=== PATIENT | male | born 1955 | race Caucasian/White ===

== ENCOUNTER 2023-02-08 20:38 | Inpatient (IN) | payer MEDICARE, MEDICAID ==
[~2023-02-08] VITALS: Ht 190.5 cm; Wt 86.8 kg
--- NOTE | 2023-02-08 20:50 | Progress Note ---
Progress Note 67yoM patient visiting from [place], [place] who I accepted via [facility] at 2039 from [facility] for GIB with hemoccult + stools with mid-epigastric abdominal pain with h/o CAD previous CABG. VSS so placed admit orders and updated Dr Heard and Dr Chun. Transfuse 1 unit of blood is planned after labs drawn stat when he arrives. PPI ordered along with EKG and Tely. ANEESH CORDOVA DO Feb 08, 2023 20:50
[2023-02-08] MEDS ORDERED: ANTACID SUSPENSION 30 ML UDC PO PRN (22:45)
[2023-02-08] MEDS ORDERED: MELATONIN 3 MG TABLET PO PRN (22:45)
[2023-02-08] MEDS ORDERED: diphenhydrAMINE 25 MG TABLET PO PRN (22:45)
[2023-02-08] MEDS ORDERED: BISACODYL 10 MG SUPPOSITORY PR PRN (22:45)
[2023-02-08] MEDS ORDERED: NS IV 500 ML 500 ML IV PRN (22:45)
[2023-02-08] MEDS ORDERED: ONDANSETRON 4 MG ORAL DISSOLVE TABLET PO PRN (22:45)
[2023-02-08] MEDS ORDERED: NS IV 500 ML 500 ML IV SCH ×2 (22:45→23:00)
[2023-02-08] MEDS ORDERED: LACTULOSE SYRUP 10GM/15ML 30ML UDC PO PRN (22:45)
[2023-02-08] MEDS ORDERED: diphenhydrAMINE INJ 50 MG/ML VIAL IVP PRN (22:45)
[2023-02-08] MEDS ORDERED: ACETAMINOPHEN 325 MG TABLET PO PRN (22:45)
[2023-02-08] MEDS ORDERED: CALCIUM CARBONATE 500 MG CHEW TABLET PO PRN (22:45)
[2023-02-08] MEDS ORDERED: MILK OF MAGNESIA 400 MG/5 ML 30 ML UDC PO PRN (22:45)
[2023-02-08] MEDS ORDERED: LORazepam 0.5 MG TABLET PO PRN (23:00)
[2023-02-08 23:12] LABS: BASOPHILS # (AUTO) 0.1 10^3/uL (0.0-0.1); BASOPHILS % (AUTO) 1 % (0-10); EOSINOPHILS # (AUTO) 0.1 10^3/uL (0.0-0.3); EOSINOPHILS % (AUTO) 1 % (0-10); HEMATOCRIT 28 % (40-54); HEMOGLOBIN 9.2 g/dL (13.3-17.7); LYMPHOCYTES # (AUTO) 1.5 10^3/uL (1.0-4.0); LYMPHOCYTES % (AUTO) 15 % (12-44); MEAN CORPUSCULAR HEMOGLOBIN 30 pg (25-34); MEAN CORPUSCULAR HGB CONC 33 g/dL (32-36); MEAN CORPUSCULAR VOLUME 93 fL (80-99); MEAN PLATELET VOLUME 11.1 fL (9.0-12.2); MONOCYTES # (AUTO) 1.1 10^3/uL (0.0-1.0); MONOCYTES % (AUTO) 11 % (0-12); NEUTROPHILS # (AUTO) 7.2 10^3/uL (1.8-7.8); NEUTROPHILS % (AUTO) 73 % (42-75); PLATELET COUNT 252 10^3/uL (130-400)
[2023-02-08] MEDS ORDERED: HYDROmorphone INJECTION 2 MG/ML VIAL ONE (23:19)
[2023-02-08 23:22] LABS: ALBUMIN 3.7 GM/DL (3.2-4.5)
[2023-02-08 23:23] LABS: POTASSIUM 3.8 MMOL/L (3.6-5.0)
[2023-02-08] MEDS: HYDROmorphone INJECTION 2 MG/ML VIAL IV PRN (23:23)
[2023-02-08] MEDS: NS IV 1000 ML 1,000 ML IV SCH (23:23)
[2023-02-08 23:24] LABS: CALCIUM 8.8 MG/DL (8.5-10.1)
[2023-02-08 23:27] LABS: BILIRUBIN,TOTAL 0.6 MG/DL (0.1-1.0)
[2023-02-08 23:29] LABS: CREATININE SERUM 1.39 MG/DL (0.60-1.30)
[2023-02-09] MEDS ORDERED: RT-ALBUTEROL SULF 2.5 MG/3 ML PRE-MIX VIAL INH PRN (00:15)
[2023-02-09] MEDS ORDERED: APIX5TAB PO (00:32)
[2023-02-09] MEDS ORDERED: TRM50T PO (00:32)
[2023-02-09] MEDS ORDERED: FERR325T18 PO (00:32)
[2023-02-09] MEDS ORDERED: MTP25TSR PO (00:32)
[2023-02-09] MEDS ORDERED: NORT50CA PO (00:32)
[2023-02-09] MEDS ORDERED: ASPI-808 PO (00:32)
[2023-02-09] MEDS ORDERED: DULO30CA49 PO (00:32)
[2023-02-09] MEDS ORDERED: METF-399 PO (00:32)
[2023-02-09] MEDS ORDERED: LISI5TAB20 PO (00:32)
[2023-02-09] MEDS ORDERED: MAGN200T8 PO (00:32)
[2023-02-09] MEDS: HYDROmorphone INJECTION 2 MG/ML VIAL IV PRN ×5 (02:36→18:05)
[2023-02-09] MEDS: NITROGLYCERIN 0.4 MG SL TABLETS BTL 25'S SL PRN ×2 (03:48→03:55)
[2023-02-09] MEDS ORDERED: NITROGLYCERIN 0.4 MG/HR PATCH TD ONE ×2 (04:00→04:02)
[2023-02-09 04:38] LABS: BASOPHILS # (AUTO) 0.1 10^3/uL (0.0-0.1); BASOPHILS % (AUTO) 1 % (0-10); EOSINOPHILS # (AUTO) 0.1 10^3/uL (0.0-0.3); EOSINOPHILS % (AUTO) 1 % (0-10); HEMATOCRIT 25 % (40-54); HEMOGLOBIN 8.3 g/dL (13.3-17.7); LYMPHOCYTES # (AUTO) 1.5 10^3/uL (1.0-4.0); LYMPHOCYTES % (AUTO) 15 % (12-44); MEAN CORPUSCULAR HEMOGLOBIN 30 pg (25-34); MEAN CORPUSCULAR HGB CONC 33 g/dL (32-36); MEAN CORPUSCULAR VOLUME 92 fL (80-99); MONOCYTES # (AUTO) 1.1 10^3/uL (0.0-1.0); MONOCYTES % (AUTO) 10 % (0-12); NEUTROPHILS # (AUTO) 7.7 10^3/uL (1.8-7.8); NEUTROPHILS % (AUTO) 73 % (42-75); PLATELET COUNT 231 10^3/uL (130-400); WHITE BLOOD COUNT 10.5 10^3/uL (4.3-11.0)
[2023-02-09 05:02] LABS: ALBUMIN 3.4 GM/DL (3.2-4.5); POTASSIUM 3.9 MMOL/L (3.6-5.0)
[2023-02-09 05:03] LABS: CALCIUM 8.3 MG/DL (8.5-10.1)
[2023-02-09 05:04] LABS: TOTAL PROTEIN 6.5 GM/DL (6.4-8.2)
[2023-02-09] MEDS: POTASSIUM CHLORIDE 20 MEQ TABLET PO SCH (05:05)
[2023-02-09] MEDS: POTASSIUM CL 10MEQ/50ML IVPB 50 ML IV SCH ×3 (05:05→05:43)
[2023-02-09 05:06] LABS: BILIRUBIN,TOTAL 0.6 MG/DL (0.1-1.0)
[2023-02-09 05:08] LABS: CREATININE SERUM 1.2 MG/DL (0.60-1.30); PHOSPHORUS 2.1 MG/DL (2.3-4.7)
[2023-02-09] MEDS: inSUlin ASPART 1 UNIT/0.01 ML (PER UNIT) SC SCH ×3 (05:09→18:16)
[2023-02-09 05:11] LABS: MAGNESIUM 1.7 MG/DL (1.6-2.4)
[2023-02-09] MEDS: MAGNESIUM 1 GM/100 ML IVPB 100 ML IV SCH ×5 (05:21→07:58)
--- NOTE | 2023-02-09 07:27 | History & Physical ---
YENNY CLAROS 02/09/23 0727: History of Present Illness History of Present Illness Reason for visit/HPI 02/09/2023: CC: GI Bleed HPI: Yuri is a 67-year-old male that presented to the [place] ED due to mid- epigastic pain. It was also found that there was a GI bleed with a positive hemeoccult test. Yuri says that he has never had pain like this. He notes that on Wednesday the pain started in his left shoulder and has migrated to his gastric region. He says that day he was participating in strenuous activity putting siding on his house. He says that the pain is worse with movement such as moving his arms or walking. Yuri also endorses that when he walks, he feels weakness in his legs and arms and gets light-headed. The pain is rated at a 8/10. The pain feels like pressure and radiates up to the sternum. Yuri notes that he had a colonoscopy and EGD [address] Jonas at [facility] which was "negative" per patient. Yuri notes that he has no other associated symptoms. Date of Admission Feb 08, 2023 at 22:40 Date Seen by a Provider: Feb 09, 2023 Time Seen by a Provider: 07:53 I consulted on this patient on 02/09/23 07:26 Attending Physician Admitting Physician Admitting Physician: Rylee Cordova DO Attending Physician: Rylee Cordova DO Consult Allergies and Home Medications Allergies Coded Allergies: No Known Drug Allergies (Unverified , 02/08/23) Patient Home Medication List Home Medication List Reviewed: Yes Apixaban (Eliquis) 5 Mg Tablet, 5 MG PO BID, (Reported) Entered as Reported by: JHONY ALEMAN on 02/09/2331 Last Action: Reviewed Aspirin (Aspirin) 325 Mg Tablet, 325 MG PO DAILY, (Reported) Entered as Reported by: JHONY ALEMAN on 02/09/2331 Last Action: Reviewed Atorvastatin Calcium (Atorvastatin Calcium) 80 Mg Tablet, 80 MG PO HS, (Reported) Entered as Reported by: ALPESH COLVIN on 02/09/23 1208 Last Action: Reviewed Duloxetine HCl (Duloxetine HCl) 30 Mg Capsule.dr, 30 MG PO DAILY, (Reported) Entered as Reported by: JHONY ALEMAN on 02/09/2331 Last Action: Reviewed Ferrous Sulfate (Ferrous Sulfate) 325 Mg (65 Mg Iron) Tablet, 325 MG PO DAILY, (Reported) Entered as Reported by: JHONY ALEMAN on 02/09/2331 Last Action: Reviewed Lisinopril (Lisinopril) 5 Mg Tablet, 5 MG PO DAILY, (Reported) Entered as Reported by: JHONY ALEMAN on 02/09/2331 Last Action: Reviewed Magnesium Oxide (Mag-Oxide) 200 Mg Magnesium Tablet, 400 MG PO DAILY, (Reported) Entered as Reported by: JHONY ALEMAN on 02/09/2331 Last Action: Reviewed Metformin HCl (Metformin HCl) 1,000 Mg Tablet, 1,000 MG PO BID, (Reported) Entered as Reported by: JHONY ALEMAN on 02/09/2331 Last Action: Reviewed Metoprolol Succinate (Metoprolol Succinate) 25 Mg Tab.er.24h, 25 MG PO DAILY, (Reported) Entered as Reported by: JHONY ALEMAN on 02/09/2331 Last Action: Reviewed Nortriptyline HCl (Nortriptyline HCl) 50 Mg Capsule, 50 MG PO BID, (Reported) Entered as Reported by: JHONY ALEMAN on 02/09/2331 Last Action: Reviewed Tramadol HCl (Tramadol HCl) 50 Mg Tablet, 50 MG PO Q6H PRN for PAIN-MODERATE (5- 7), (Reported) Entered as Reported by: JHONY ALEMAN on 02/09/2331 Last Action: Reviewed Vitamin B Complex (B Complex) 1 Each Tablet, 1 EACH PO DAILY, (Reported) Entered as Reported by: ALPESH COLVIN on 02/09/231207 Last Action: Reviewed Past Qygiddh-Nvjuyt-Cdudxu Hx Patient Social History Marrital Status: Employed/Student: retired Tobacco Use?: No Smoking Status: Former Smoker (30 pack years) Smokeless Tobacco Frequency: Never a User Use of E-Cig and/or Vaping dev: No Substance use?: No Substance type: Marijuana (medicinal, CBD oil ) Alcohol Use?: No Pt feels they are or have been: No Current Status Advance Directives: No Communicates: Verbally Primary Language: Israeli Preferred Spoken Language: Israeli Is interpretation needed?: No Sensory deficits: Vision impairment Implanted or Applied Medical D: Orthopedic hardware, Pacemaker, Stents Past Medical History Surgeries: Adenoidectomy, CABG, Coronary Stent, Open Heart Surgery, Orthopedic (spine, lower, plate in neck), Pacemaker Sleep Apnea, COPD Atrial Fibrillation, Coronary Artery Disease, Heart Attack, High Cholesterol, Hypertension Abdominal Hernia, Hemorrhoids, Ulcer Osteoporosis, Chronic Back Pain Diabetes, Non-Insulin dep Sleep Difficulties, Anxiety, Depression Family Medical History Diabetes Review of Systems Constitutional: No dizziness, No fever, No weight gain, No weight loss EENTM: no symptoms reported Respiratory: no symptoms reported Cardiovascular: chest pain, Hx of Intervention, other (lightheaded ) Gastrointestinal: RUQ, see HPI, abdominal pain (RUQ) Genitourinary: no symptoms reported Musculoskeletal: back pain Skin: no symptoms reported Psychiatric/Neurological: No Symptoms Reported Physical Exam Vital Signs Vital Signs - First Documented Capillary Refill : Less Than 3 Seconds Height, Weight, BMI Height: '" Weight: lbs. oz. kg; 23.11 BMI Method: General Appearance: No Apparent Distress, WD/WN, Anxious Eyes: Bilateral Eye Normal Inspection HEENT: PERRL/EOMI, Moist Mucous Membranes; No Pale Conjunctivae (L), No Pale Conjunctivae (R) Neck: Full Range of Motion, Normal Inspection Respiratory: Chest Non Tender, Lungs Clear, Normal Breath Sounds, No Accessory Muscle Use, No Respiratory Distress Cardiovascular: No Edema, No Gallop, No JVD, Normal Peripheral Pulses, Systolic Murmur Gastrointestinal: Normal Bowel Sounds, Guarding, Tenderness, Other (scar in LLQ, S/P appendectomy ) Rectal: Deferred Back: Normal Inspection Extremity: Normal Capillary Refill, Normal Inspection, Non Tender, No Calf Tenderness Neurologic/Psychiatric: Alert, Oriented x3, No Motor/Sensory Deficits, Normal Mood/Affect Skin: Normal Color, Warm/Dry Lymphatic: No Adenopathy Assessment/Plan Assessment and Plan 02/08/2023: A/P -GI Bleed * Dr. Chun consulted * monitor for hemodynamic changes * CT negative for acute bleed 02/09 * [facility] order -Anemia * Type/cross match * 1 unit available -ASH * Prerenal presentation * IV Fluid -Chest Pain * Dr. Heard Consulted * Nitroglycerin patch * negative troponin, repeat Clinical Quality Measures DVT/VTE Risk/Contraindication: Contraindications-Pharm: Other *list below* Other: RYLEE Funes DO 02/10/23 0431: History of Present Illness History of Present Illness Reason for visit/HPI Chief complaint: GI bleed with midepigastric pain HPI: This is a 67-year-old male I accepted from [facility] due to extensive cardiology issues with suspected GI bleed with mid epigastric pain and Hemoccult positive stools. Currently he is still having a lot of pain so CT scan was obtained Revealing no significant issues or perforation. Cardiology has been consulted. Troponin has been negative. Holding anticoagulation and aspirin. Allergies and Home Medications Allergies Coded Allergies: No Known Drug Allergies (Unverified , 02/08/23) Patient Home Medication List Home Medication List Reviewed: Yes Apixaban (Eliquis) 5 Mg Tablet, 5 MG PO BID, (Reported) Entered as Reported by: JHONY ALEMAN on 02/09/2331 Last Action: Reviewed Aspirin (Aspirin) 325 Mg Tablet, 325 MG PO DAILY, (Reported) Entered as Reported by: JHONY ALEMAN on 02/09/2331 Last Action: Reviewed Atorvastatin Calcium (Atorvastatin Calcium) 80 Mg Tablet, 80 MG PO HS, (Reported) Entered as Reported by: ALPESH COLVIN on 02/09/23 120 Last Action: Reviewed Duloxetine HCl (Duloxetine HCl) 30 Mg Capsule.dr, 30 MG PO DAILY, (Reported) Entered as Reported by: JHONY ALEMAN on 02/09/2331 Last Action: Reviewed Ferrous Sulfate (Ferrous Sulfate) 325 Mg (65 Mg Iron) Tablet, 325 MG PO DAILY, (Reported) Entered as Reported by: JHONY ALEMAN on 02/09/2331 Last Action: Reviewed Lisinopril (Lisinopril) 5 Mg Tablet, 5 MG PO DAILY, (Reported) Entered as Reported by: JHONY ALEMAN on 02/09/2331 Last Action: Reviewed Magnesium Oxide (Mag-Oxide) 200 Mg Magnesium Tablet, 400 MG PO DAILY, (Reported) Entered as Reported by: JHONY ALEMAN on 02/09/2331 Last Action: Reviewed Metformin HCl (Metformin HCl) 1,000 Mg Tablet, 1,000 MG PO BID, (Reported) Entered as Reported by: JHONY ALEMAN on 02/09/2331 Last Action: Reviewed Metoprolol Succinate (Metoprolol Succinate) 25 Mg Tab.er.24h, 25 MG PO DAILY, (Reported) Entered as Reported by: JHONY ALEMAN on 02/09/2331 Last Action: Reviewed Nortriptyline HCl (Nortriptyline HCl) 50 Mg Capsule, 50 MG PO BID, (Reported) Entered as Reported by: JHONY ALEMAN on 02/09/2331 Last Action: Reviewed Tramadol HCl (Tramadol HCl) 50 Mg Tablet, 50 MG PO Q6H PRN for PAIN-MODERATE (5- 7), (Reported) Entered as Reported by: JHONY ALEMAN on 02/09/2331 Last Action: Reviewed Vitamin B Complex (B Complex) 1 Each Tablet, 1 EACH PO DAILY, (Reported) Entered as Reported by: ALPESH COLVIN on 02/09/23 120 Last Action: Reviewed Past Lkhnvil-Leccdz-Edmtyg Hx Patient Social History Marrital Status: Employed/Student: retired Smoking Status: Former Smoker (30 pack years) Substance type: Marijuana (medicinal, CBD oil ) Past Medical History Surgeries: Pacemaker Sleep Apnea Currently Using CPAP: Yes Atrial Fibrillation, Coronary Artery Disease Review of Systems Constitutional: see HPI Gastrointestinal: abdominal pain (RUQ), nausea Physical Exam General Appearance: Anxious, Chronically ill, Thin Respiratory: Lungs Clear, Normal Breath Sounds Cardiovascular: Regular Rate, Rhythm Assessment/Plan Assessment and Plan Assessment: Suspected GI bleed Midepigastric abdominal pain Hemoccult positive stools CAD A-fib PHILIPPE Plan: Supportive care Monitor closely ICU Admission Diagnosis Admission Status: Inpatient Order (span 2 midnights) Reason for Inpatient Admission: GI bleed with abdominal pain Supervisory-Addendum Brief Verification & Attestation Participated in pt care: history, MDM, physical Personally performed: exam, history, MDM, supervision of care Care discussed with: Medical Student Procedures: n/a Results interpretation: Verified all documentation Verification and Attestation of Medical Student E/M Service A medical student performed and documented this service in my presence. I reviewed and verified all information documented by the medical student and made modifications to such information, when appropriate. I personally performed the physical exam and medical decision making. Rylee Cordova Feb 10, 2023,04:31 YENNY CLAROS Feb 09, 2023 07:27 RYLEE CORDOVA DO Feb 10, 2023 04:31
--- NOTE | 2023-02-09 08:23 | Consultation - Surgery ---
MONICA FORBES 02/09/2323: History of Present Illness History of Present Illness Patient Consulted On(eugenia/time) 02/09/23 08:17 Date Seen by Provider: Feb 09, 2023 Time Seen by Provider: 06:30 History of Present Illness 67-year-old male with a suspected GI bleed. Has been having epigastric pain since 2 months ago and describes it as an achy, dull pain that is constant. The pain is worse after he eats, nothing makes it better. Describes the pain as a 4/10 on visit, but pain has reached 10/10 in the past. Denies any nausea or vomiting. Denies any blood in the stool recently nor in the past 2 months. 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 Had a colonoscopy around 3 years ago and he stated it was normal. No history of NSAID use. CT abdomen: no bowel obstruction, no evidence of large GI bleed, small amount free fluid in the abdomen & pelvis, small to moderate hiatal hernia, bilateral pleural effusions & bibasilar opacities Allergies and Home Medications Allergies Coded Allergies: No Known Drug Allergies (Unverified , 02/08/23) Patient Home Medication List Home Medication List Reviewed: Yes Apixaban (Eliquis) 5 Mg Tablet, 5 MG PO BID, (Reported) Entered as Reported by: JHONY ALEMAN on 02/09/2331 Last Action: Reviewed Aspirin (Aspirin) 325 Mg Tablet, 325 MG PO DAILY, (Reported) Entered as Reported by: JHONY ALEMAN on 02/09/2331 Last Action: Reviewed Atorvastatin Calcium (Atorvastatin Calcium) 80 Mg Tablet, 80 MG PO HS, (Reported) Entered as Reported by: ALPESH COLVIN on 02/09/23 1208 Last Action: Reviewed Duloxetine HCl (Duloxetine HCl) 30 Mg Capsule.dr, 30 MG PO DAILY, (Reported) Entered as Reported by: JHONY ALEMAN on 02/09/2331 Last Action: Reviewed Ferrous Sulfate (Ferrous Sulfate) 325 Mg (65 Mg Iron) Tablet, 325 MG PO DAILY, (Reported) Entered as Reported by: JHONY ALEMAN on 02/09/2331 Last Action: Reviewed Lisinopril (Lisinopril) 5 Mg Tablet, 5 MG PO DAILY, (Reported) Entered as Reported by: JHONY ALEMAN on 02/09/2331 Last Action: Reviewed Magnesium Oxide (Mag-Oxide) 200 Mg Magnesium Tablet, 400 MG PO DAILY, (Reported) Entered as Reported by: JHONY AELMAN on 02/09/2331 Last Action: Reviewed Metformin HCl (Metformin HCl) 1,000 Mg Tablet, 1,000 MG PO BID, (Reported) Entered as Reported by: JHONY ALEMAN on 02/09/2331 Last Action: Reviewed Metoprolol Succinate (Metoprolol Succinate) 25 Mg Tab.er.24h, 25 MG PO DAILY, (Reported) Entered as Reported by: JHONY ALEMAN on 02/09/2331 Last Action: Reviewed Nortriptyline HCl (Nortriptyline HCl) 50 Mg Capsule, 50 MG PO BID, (Reported) Entered as Reported by: JHONY ALEMAN on 02/09/2331 Last Action: Reviewed Tramadol HCl (Tramadol HCl) 50 Mg Tablet, 50 MG PO Q6H PRN for PAIN-MODERATE (5- 7), (Reported) Entered as Reported by: JHONY ALEMAN on 02/09/2331 Last Action: Reviewed Vitamin B Complex (B Complex) 1 Each Tablet, 1 EACH PO DAILY, (Reported) Entered as Reported by: ALPESH COLVIN on 02/09/231207 Last Action: Reviewed Past Qusmukb-Mallxg-Maiomu Hx Patient Social History Smoking Status: Former Smoker Alcohol Use?: No Surgeries Surgeries: Appendectomy Review of Systems-General Constitutional: No chills, No fever EENTM: No blurred vision, No eye pain Respiratory: No cough; short of breath Cardiovascular: chest pain; No edema Gastrointestinal: abdominal pain; No nausea, No vomiting Genitourinary: No dysuria, No frequency Musculoskeletal: No back pain, No joint pain Skin: No change in color, No dryness Psychiatric/Neurological: Denies Headache, Denies Numbness Physical Exam-General Problems Physical Exam Vital Signs Vital Signs - First Documented Capillary Refill : Less Than 3 Seconds General Appearance: WD/WN, no apparent distress Eyes: Bilateral Eye Normal Inspection, Bilateral Eye PERRL, Bilateral Eye EOMI HEENT: PERRL/EOMI Neck: non-tender Respiratory: lungs clear, normal breath sounds, no respiratory distress, no accessory muscle use Cardiovascular: regular rate, rhythm, no murmur Peripheral Pulses: 2+ Dorsalis Pedis (R), 2+ Left Dors-Pedis (L), 2+ Radial Pulses (R), 2+ Radial Pulses (L) Gastrointestinal: guarding (Voluntary ), tenderness (Diffuse, barely touching elicits pain) Neurologic/Psychiatric: alert, normal mood/affect, oriented x 3 Skin: normal color, warm/dry Data Review Labs Laboratory Tests 02/08/23 23:01: White Blood Count 10.0, Red Blood Count 3.04L, Hemoglobin 9.2L, Hematocrit 28L, Mean Corpuscular Volume 93, Mean Corpuscular Hemoglobin 30, Mean Corpuscular Hemoglobin Concent 33, Red Cell Distribution Width 16.0H, Platelet Count 252, Mean Platelet Volume 11.1, Immature Granulocyte % (Auto) 0, Neutrophils (%) (Auto) 73, Lymphocytes (%) (Auto) 15, Monocytes (%) (Auto) 11, Eosinophils (%) (Auto) 1, Basophils (%) (Auto) 1, Neutrophils # (Auto) 7.2, Lymphocytes # (Auto) 1.5, Monocytes # (Auto) 1.1H, Eosinophils # (Auto) 0.1, Basophils # (Auto) 0.1, Immature Granulocyte # (Auto) 0.0, Sodium Level 137, Potassium Level 3.8, Chloride Level 102, Carbon Dioxide Level 24, Anion Gap 11, Blood Urea Nitrogen 29H, Creatinine 1.39H, Estimat Glomerular Filtration Rate 56, BUN/Creatinine Ratio 21, Glucose Level 200H, Calcium Level 8.8, Corrected Calcium 9.0, Total Bilirubin 0.6, Aspartate Amino Transf (AST/SGOT) 18, Alanine Aminotransferase (ALT/SGPT) 16, Alkaline Phosphatase 94, Total Protein 7.0, Albumin 3.7 02/09/23 04:04: White Blood Count 10.5, Red Blood Count 2.74L, Hemoglobin 8.3L, Hematocrit 25L, Mean Corpuscular Volume 92, Mean Corpuscular Hemoglobin 30, Mean Corpuscular Hemoglobin Concent 33, Red Cell Distribution Width 15.9H, Platelet Count 231, Mean Platelet Volume 11.0, Immature Granulocyte % (Auto) 0, Neutrophils (%) (Auto) 73, Lymphocytes (%) (Auto) 15, Monocytes (%) (Auto) 10, Eosinophils (%) (Auto) 1, Basophils (%) (Auto) 1, Neutrophils # (Auto) 7.7, Lymphocytes # (Auto) 1.5, Monocytes # (Auto) 1.1H, Eosinophils # (Auto) 0.1, Basophils # (Auto) 0.1, Immature Granulocyte # (Auto) 0.0, Sodium Level 137, Potassium Level 3.9, Chloride Level 103, Carbon Dioxide Level 24, Anion Gap 10, Blood Urea Nitrogen 27H, Creatinine 1.20, Estimat Glomerular Filtration Rate 66, BUN/Creatinine Ratio 23, Glucose Level 165H, Calcium Level 8.3L, Corrected Calcium 8.8, Total Bilirubin 0.6, Aspartate Amino Transf (AST/SGOT) 16, Alanine Aminotransferase (ALT/SGPT) 15, Alkaline Phosphatase 87, Total Protein 6.5, Albumin 3.4, Phosphorus Level 2.1L, Magnesium Level 1.7, Troponin I < 0.028 Assessment/Plan Assessment/Plan Assessment/Plan Suspected GI bleed Anemia - 8.3 this morning Supportive care Pain management CT of abdomen Clinical Quality Measures DVT/VTE Risk/Contraindication: Contraindications-Pharm: Other *list below* Other: TAYLOR Joseph DO 02/09/232119: History of Present Illness History of Present Illness History of Present Illness 67 year old male transferred from [place]. Having epigastric pain dull achy pain that is constant. Worse after eating. Has been having pain for about 2 months. Nothing makes it better. States pain moves into back. Reported to have hemoccult + stools and has had previous endoscopies he reports as normal 2- 3 years ago. Patient not having any nausea or vomiting. Also with chest pain. Extensive cardiac history. NPO. Allergies and Home Medications Allergies Coded Allergies: No Known Drug Allergies (Unverified , 02/08/23) Patient Home Medication List Home Medication List Reviewed: Yes Apixaban (Eliquis) 5 Mg Tablet, 5 MG PO BID, (Reported) Entered as Reported by: JHONY ALEMAN on 02/09/2331 Last Action: Reviewed Aspirin (Aspirin) 325 Mg Tablet, 325 MG PO DAILY, (Reported) Entered as Reported by: JHONY ALEMAN on 02/09/2331 Last Action: Reviewed Atorvastatin Calcium (Atorvastatin Calcium) 80 Mg Tablet, 80 MG PO HS, (Reported) Entered as Reported by: ALPESH COLVIN on 02/09/231207 Last Action: Reviewed Duloxetine HCl (Duloxetine HCl) 30 Mg Capsule.dr, 30 MG PO DAILY, (Reported) Entered as Reported by: JHONY ALEMAN on 02/09/2331 Last Action: Reviewed Ferrous Sulfate (Ferrous Sulfate) 325 Mg (65 Mg Iron) Tablet, 325 MG PO DAILY, (Reported) Entered as Reported by: JHONY ALEMAN on 02/09/2331 Last Action: Reviewed Lisinopril (Lisinopril) 5 Mg Tablet, 5 MG PO DAILY, (Reported) Entered as Reported by: JHONY ALEMAN on 02/09/2331 Last Action: Reviewed Magnesium Oxide (Mag-Oxide) 200 Mg Magnesium Tablet, 400 MG PO DAILY, (Reported) Entered as Reported by: JHONY ALEMAN on 02/09/2331 Last Action: Reviewed Metformin HCl (Metformin HCl) 1,000 Mg Tablet, 1,000 MG PO BID, (Reported) Entered as Reported by: JHONY ALEMAN on 02/09/2331 Last Action: Reviewed Metoprolol Succinate (Metoprolol Succinate) 25 Mg Tab.er.24h, 25 MG PO DAILY, (Reported) Entered as Reported by: JHONY ALEMAN on 02/09/2331 Last Action: Reviewed Nortriptyline HCl (Nortriptyline HCl) 50 Mg Capsule, 50 MG PO BID, (Reported) Entered as Reported by: JHONY ALEMAN on 02/09/2331 Last Action: Reviewed Tramadol HCl (Tramadol HCl) 50 Mg Tablet, 50 MG PO Q6H PRN for PAIN-MODERATE (5- 7), (Reported) Entered as Reported by: JHONY ALEMAN on 02/09/2331 Last Action: Reviewed Vitamin B Complex (B Complex) 1 Each Tablet, 1 EACH PO DAILY, (Reported) Entered as Reported by: ALPESH COLVIN on 02/09/231207 Last Action: Reviewed Past Rqkdjda-Wfcsak-Cjkskc Hx Reviewed Nursing Assessment Reviewed/Agree w Nursing PMH: Yes Family Medical History Significant Family History: No Pertinent Family Hx Review of Systems-General Constitutional: No chills, No fever EENTM: No blurred vision, No double vision Respiratory: No cough; short of breath Cardiovascular: chest pain; No edema Gastrointestinal: abdominal pain; No nausea, No vomiting Genitourinary: No decreased output, No discharge Musculoskeletal: back pain; No joint pain Skin: No change in color, No dryness Psychiatric/Neurological: Denies Anxiety, Denies Depressed, Denies Emotional Problems All Other Systems Reviewed Negative Unless Noted: Yes (Negative excepted noted.) Physical Exam-General Problems Physical Exam General Appearance: WD/WN, no apparent distress HEENT: PERRL/EOMI, normal ENT inspection Neck: non-tender, supple Respiratory: chest non-tender, no respiratory distress, no accessory muscle use Cardiovascular: regular rate, rhythm, no JVD Gastrointestinal: soft, guarding (Voluntary ), tenderness (Diffuse, barely touching elicits pain at times but can also palpate deeply with no pain) Rectal: deferred Back: normal inspection, no CVA tenderness Extremities: non-tender, normal inspection Neurologic/Psychiatric: alert, normal mood/affect, oriented x 3 Skin: normal color, warm/dry Lymphatic: no adenopathy Assessment/Plan Assessment/Plan Assessment/Plan diffuse abdominal pain anemia hemocult blood in stool CAD chest pain NPO Protonix BID Ct abd/pelvis c contrast: 1. No bowel obstruction. No obvious evidence of large GI bleed. Consider nuclear medicine GI bleed scan to further evaluate if indicated. 2. Small amount of free fluid in the abdomen and pelvis. 3. Small to moderate hiatal hernia. 4. Bilateral pleural effusions and bibasilar opacities. No clear source of cause of pain on ct and wbc normal. Okay with clear liquids from surgical standpoint. Will follow. Supervisory-Addendum Brief Verification & Attestation Participated in pt care: history, MDM, physical Personally performed: exam, history, MDM, supervision of care Care discussed with: Medical Student Procedures: n/a Results interpretation: Verified all documentation Verification and Attestation of Medical Student E/M Service A medical student performed and documented this service in my presence. I reviewed and verified all information documented by the medical student and made modifications to such information, when appropriate. I personally performed the physical exam and medical decision making. Taylor Babin, Feb 09, 2023,21:23 MONICA FORBES Feb 09, 2023 08:23 TAYLOR BABIN DO Feb 09, 2023 21:20
--- NOTE | 2023-02-09 08:39 | Consultation-Cardiology ---
HPI-Cardiology Cardiology Consultation Date of Consultation 02/09/23 Date of Admission Time Seen by Provider: 08:36 Indication: Chest pain HPI 67-year-old gentleman with extensive cardiac history, hypertension, hyperlipidemia and diabetes mellitus, has been having chest pain waxing and waning described episode of chest pain dull pressure in the retrosternal area radiating to the back. Has been having significant abdominal pain. Was transferred to our hospital. On my evaluation he was having mild chest pressure in addition to severe abdominal pain Home Medications & Allergies Allergies: Coded Allergies: No Known Drug Allergies (Unverified , 02/08/23) Home Medication List Reviewed: Yes UKQ-Rintva-Lrgusk Hx Patient Social History Marital Status: Employed/Student: retired Smoking Status: Former Smoker (30 pack years) Alcohol Use?: No Substance type: Marijuana (medicinal, CBD oil ) Past Medical History Discussed below Family Medical History Significant Family History: Heart Disease, Diabetes Review of Systems-General Review of Systems Constitutional: No chills, No fever; malaise, weakness EENTM: No blurred vision, No eye pain Respiratory: see HPI; No cough; dyspnea on exertion, short of breath Cardiovascular: chest pain; No edema Gastrointestinal: abdominal pain; No nausea, No vomiting Genitourinary: No dysuria, No frequency Musculoskeletal: No back pain, No joint pain Skin: No change in color, No dryness Psychiatric/Neurological: Denies Headache, Denies Numbness Reviewed Test Results Reviewed Test Results Lab Laboratory Tests Test 02/08/23 23:01 02/09/23 04:04 Range/Units White Blood Count 10.0 10.5 4.3-11.0 10^3/uL Red Blood Count 3.04 L 2.74 L 4.30-5.52 10^6/uL Hemoglobin 9.2 L 8.3 L 13.3-17.7 g/dL Hematocrit 28 L 25 L 40-54 % Mean Corpuscular Volume 93 92 80-99 fL Mean Corpuscular Hemoglobin 30 30 25-34 pg Mean Corpuscular Hemoglobin Concent 33 33 32-36 g/dL Red Cell Distribution Width 16.0 H 15.9 H 10.0-14.5 % Platelet Count 252 231 130-400 10^3/uL Mean Platelet Volume 11.1 11.0 9.0-12.2 fL Immature Granulocyte % (Auto) 0 0 % Neutrophils (%) (Auto) 73 73 42-75 % Lymphocytes (%) (Auto) 15 15 12-44 % Monocytes (%) (Auto) 11 10 0-12 % Eosinophils (%) (Auto) 1 1 0-10 % Basophils (%) (Auto) 1 1 0-10 % Neutrophils # (Auto) 7.2 7.7 1.8-7.8 10^3/uL Lymphocytes # (Auto) 1.5 1.5 1.0-4.0 10^3/uL Monocytes # (Auto) 1.1 H 1.1 H 0.0-1.0 10^3/uL Eosinophils # (Auto) 0.1 0.1 0.0-0.3 10^3/uL Basophils # (Auto) 0.1 0.1 0.0-0.1 10^3/uL Immature Granulocyte # (Auto) 0.0 0.0 0.0-0.1 10^3/uL Sodium Level 137 137 135-145 MMOL/L Potassium Level 3.8 3.9 3.6-5.0 MMOL/L Chloride Level 102 103 98-107 MMOL/L Carbon Dioxide Level 24 24 21-32 MMOL/L Anion Gap 11 10 5-14 MMOL/L Blood Urea Nitrogen 29 H 27 H 7-18 MG/DL Creatinine 1.39 H 1.20 0.60-1.30 MG/DL Estimat Glomerular Filtration Rate 56 66 BUN/Creatinine Ratio 21 23 Glucose Level 200 H 165 H 70-105 MG/DL Calcium Level 8.8 8.3 L 8.5-10.1 MG/DL Corrected Calcium 9.0 8.8 8.5-10.1 MG/DL Total Bilirubin 0.6 0.6 0.1-1.0 MG/DL Aspartate Amino Transf (AST/SGOT) 18 16 5-34 U/L Alanine Aminotransferase (ALT/SGPT) 16 15 0-55 U/L Alkaline Phosphatase 94 87 40-136 U/L Total Protein 7.0 6.5 6.4-8.2 GM/DL Albumin 3.7 3.4 3.2-4.5 GM/DL Phosphorus Level 2.1 L 2.3-4.7 MG/DL Magnesium Level 1.7 1.6-2.4 MG/DL Troponin I < 0.028 <0.028 NG/ML Physical Exam Physical Exam Vital Signs Vital Signs - First Documented Capillary Refill : Less Than 3 Seconds Height, Weight, BMI Height: '" Weight: lbs. oz. kg; 23.11 BMI Method: General Appearance: No Apparent Distress, WD/WN Eyes: Bilateral Eye Normal Inspection, Bilateral Eye PERRL, Bilateral Eye EOMI HEENT: PERRL/EOMI, TMs Normal, Normal ENT Inspection, Pharynx Normal, Moist Mucous Membranes Neck: Full Range of Motion, Normal Inspection, Non Tender, Supple, Carotid Bruit Respiratory: Chest Non Tender, Normal Breath Sounds, No Accessory Muscle Use, No Respiratory Distress Cardiovascular: Regular Rate, Rhythm, No Edema, No Gallop, No JVD, Normal Peripheral Pulses, Systolic Murmur Gastrointestinal: Normal Bowel Sounds, No Organomegaly, No Pulsatile Mass, Non Tender, Soft Back: Normal Inspection, No CVA Tenderness, No Vertebral Tenderness Extremity: Normal Capillary Refill, Normal Inspection, Normal Range of Motion, Non Tender, No Calf Tenderness, No Pedal Edema Neurologic/Psychiatric: Alert, Oriented x3, No Motor/Sensory Deficits, Normal Mood/Affect Skin: Normal Color, Warm/Dry Lymphatic: No Adenopathy A/P-Cardiology Admission Diagnosis Chest pain Acute abdomen Coronary artery disease Hypertension Assessment/Plan Chest pain resembling angina Extensive cardiac history EKG showing paced rhythm Cardiac enzymes are negative We will consider stress test versus cardiac catheterization once his abdominal pain resolved Acute abdomen, rebound tenderness. Surgical consult was called. Awaiting recommendation Coronary artery disease. History of CABG x2 done in 1995, redo surgery CABG x3 done in 2014, had a stent [place] in [address] Paz in [place] No recent cardiac work-up. I will evaluate 2D echo Continue to monitor rhythm History of permanent pacemaker, placed in 2019. Currently in paced rhythm Hypertension, resume home medication monitor blood pressure Hyperlipidemia, monitor lipids Diabetes mellitus, followed and managed by primary care team Preoperative cardiac evaluation, patient is considered at high risk for perioperative cardiovascular complication, had extensive cardiac history and no recent cardiac work-up and recurrent chest pain. Decision regarding surgery, risk versus benefit is deferred to the surgeon Clinical Quality Measures DVT/VTE Risk/Contraindication: Contraindications-Pharm: Other *list below* Other: JOAQUIM Saleem MD Feb 09, 2023 08:39
[2023-02-09] MEDS ORDERED: PANTOPRAZOLE INJECTION 40 MG VIAL IV SCH (09:00)
[2023-02-09] MEDS: SENNOSIDES 8.6 MG TABLET PO SCH ×2 (09:37→20:32)
[2023-02-09] MEDS: DOCUSATE SODIUM 100 MG CAPSULE PO SCH ×2 (09:37→20:32)
[2023-02-09] MEDS: ONDANSETRON INJECTION 4 MG/2 ML (SDV) IV PRN ×2 (09:42→18:05)
[2023-02-09] MEDS ORDERED: HOLD METFORMIN - RECEIVED CONTRAST 20 ML VIAL IV SCH (10:00)
[2023-02-09] MEDS ORDERED: IOHEXOL 350 MG/ML 100 ML (OMNIPAQUE 350) VIAL IV ONE (10:00)
[2023-02-09] MEDS ORDERED: NS 100 ML (IVPB) BAG IV ONE (10:00)
--- NOTE | 2023-02-09 11:12 | Diagnostic Imaging Report ---
EXAMINATION: CT abdomen and pelvis with intravenous contrast. TECHNIQUE: Multiple contiguous axial images were obtained through the abdomen and pelvis after the uneventful administration of intravenous contrast. All CT scans use one or more of the following dose optimizing techniques: automated exposure control, MA and/or KvP adjustment based on patient size and exam type or iterative reconstruction. HISTORY: Abdominal pain. COMPARISON: None available. FINDINGS: The heart is unremarkable. Bilateral pleural effusions are seen with bibasilar opacities. Small to moderate hiatal hernia is seen. The liver, spleen, pancreas, adrenal glands, and kidneys have a normal appearance. There is no pathologically enlarged mesenteric or retroperitoneal adenopathy. The bowel loops are nondilated. A small amount of free fluid is seen in the abdomen and pelvis. There is no free air. No acute osseous abnormalities. Posterior fusion is seen at L5-S1. There is grade 1 anterolisthesis of L5 on S1. Scattered calcified aortic and iliac atherosclerotic plaque is seen without aneurysm. Ureters and bladder are grossly normal. There is no free air, loculated collection, or adenopathy in the pelvis. IMPRESSION: 1. No bowel obstruction. No obvious evidence of large GI bleed. Consider nuclear medicine GI bleed scan to further evaluate if indicated. 2. Small amount of free fluid in the abdomen and pelvis. 3. Small to moderate hiatal hernia. 4. Bilateral pleural effusions and bibasilar opacities. Dictated by: Dictated on workstation # [id number]
[2023-02-09] MEDS: NS IV 1000 ML 1,000 ML IV SCH (11:20)
[2023-02-09] MEDS ORDERED: VITA-189 PO (12:08)
[2023-02-09] MEDS ORDERED: ATOR80TA76 PO (12:08)
--- NOTE | 2023-02-09 13:14 | Tele-ICU Progress Note ---
Subjective Date Seen by a Provider: Feb 09, 2023 Time Seen by a Provider: 09:57 Subjective/Events-last exam (Tele-ICU Physician , Progress Note ) Service provided via interactive audio and video telecommunications E-CARE system to a patient admitted to ICU bed in [facility]. Patient is seen today due to persistent need of ICU care Available chart/ vitals / labs / Images reviewed Video assessment done using teleICU camera, rest of exam as per RN Discussed with RN Events overnight : Afebrile hemodynamically stable Respiratory - I/O = Drips: Pressors- no Hospital course: A/P CAD, s/p CABG x2 , -angina?, neg trop -EKG paced rhythm -ECHO ordered - cards consulted -consider stress test versus cardiac catheterization once his abdominal pain resolved Acute abdomen -Surgical consult - CT abd/plv today S/p p ermanent pacemaker, placed in 2019 -Currently in paced rhythm DM II - hold metformin. ISS Lines : per , (Central Line Necessity Reviewed) Ford: void OG: Nutrition: Analgesia: Anxiety/ delirium VTE Prophylaxis: scd Stress Ulcer Prophylaxis: PPi Plans in collaboration with bedside consultants and IM MDs. Discussed with RN to reach out if any questions or concerns Case and care daily discussed on multidisciplinary rounds ( RN, PharmD, Caseworker Protective Services , Respiratory Therapy, rolled materials worker ) A total of 22 minutes of critical care time was devoted to this patient today, required to treat and/or prevent further deterioration of critical care condi tion ( as above ) . I am remotely monitoring this patient from another state. I am unable to do the bedside exam, and history/physical and pertinent information is taken from other notes in the computer and bedside staff. Sepsis Event Evaluation Height, Weight, BMI Height: '" Weight: lbs. oz. kg; 23.11 BMI Method: Exam Exam Patient acknowledged, consented, and participated in this virtual visit which was conducted using real time audio/video Vital Signs Date Time Temp Pulse Resp B/P (MAP) Pulse Ox O2 Delivery O2 Flow Rate FiO2 02/09/23 13:12 Nasal Cannula 2.00 02/09/23 12:18 97 02/09/23 12:00 96 11 135/73 (93) 95 Room Air 02/09/23 11:20 Room Air 02/09/23 11:00 92 15 120/69 (86) 93 Room Air 02/09/23 10:00 92 20 97/66 (76) 90 Room Air 02/09/23 09:00 93 10 124/69 (87) 90 Room Air 02/09/23 08:34 91 02/09/23 08:00 98 13 116/78 (91) 98 Room Air 02/09/23 07:57 93 02/09/23 07:50 Room Air 02/09/23 07:47 36.2 02/09/23 07:00 93 19 99/67 (78) 91 Room Air 02/09/23 06:00 96 17 111/67 (82) 93 Room Air 02/09/23 05:00 94 22 126/84 (98) 92 Room Air 02/09/23 03:50 92 13 121/81 (94) 94 Room Air 02/09/23 03:50 92 Room Air 02/09/23 03:49 36.2 02/09/23 03:00 93 14 120/94 (103) 96 Room Air 02/09/23 02:00 95 22 122/88 (99) 92 Room Air 02/09/23 01:00 93 02/09/23 01:00 97 15 122/87 (99) 98 Room Air 02/09/23 00:00 96 Room Air 02/09/23 00:00 92 15 133/86 (102) 96 Room Air 02/08/23 23:30 91 16 123/76 (92) 95 Room Air 02/08/23 23:15 90 14 104/59 (74) 96 Room Air 02/08/23 23:09 95 Room Air 02/08/23 23:00 93 17 125/73 (90) 95 Room Air 02/08/23 22:45 93 18 126/76 (93) 93 Room Air 02/08/23 22:41 90 02/08/23 22:41 36.9 91 14 126/80 (95) 95 Room Air I & O 02/09/23 07:00 Intake Total 200 ml Output Total 300 ml Balance -100 ml Height & Weight Height: '" Weight: lbs. oz. kg; 23.11 BMI Method: General Appearance: No Apparent Distress, WD/WN, Anxious HEENT: PERRL/EOMI, Moist Mucous Membranes; No Pale Conjunctivae (L), No Pale Conjunctivae (R) Neck: Full Range of Motion, Normal Inspection Respiratory: Chest Non Tender, Lungs Clear, Normal Breath Sounds, No Accessory Muscle Use, No Respiratory Distress Cardiovascular: No Edema, No Gallop, No JVD, Normal Peripheral Pulses, Systolic Murmur Capillary Refill: Less Than 3 Seconds Peripheral Pulses: 2+ Dorsalis Pedis (R), 2+ Left Dors-Pedis (L), 2+ Radial Pulses (R), 2+ Radial Pulses (L) Gastrointestinal: guarding (Voluntary ), tenderness (Diffuse, barely touching elicits pain) Extremity: Normal Capillary Refill, Normal Inspection, Non Tender, No Calf Tenderness Neurologic/Psychiatric: Alert, Oriented x3, No Motor/Sensory Deficits, Normal Mood/Affect Skin: Normal Color, Warm/Dry Lymphatic: No Adenopathy Results Lab Laboratory Tests 02/08/23 23:01 02/09/23 04:04 Assessment/Plan Assessment/Plan 1 EDWARD EPTSEIN MD Feb 09, 2023 13:14
[2023-02-09] MEDS: oxyCODONE IMMEDIATE RELEASE 5 MG TABLET PO PRN (18:48)
[2023-02-09] MEDS: PANTOPRAZOLE INJECTION 40 MG VIAL IV SCH (21:49)
[2023-02-10] MEDS: NS IV 1000 ML 1,000 ML IV SCH (00:12)
[2023-02-10] MEDS: HYDROmorphone INJECTION 2 MG/ML VIAL IV PRN ×2 (00:12→09:50)
[2023-02-10 04:44] LABS: BASOPHILS # (AUTO) 0.1 10^3/uL (0.0-0.1); BASOPHILS % (AUTO) 1 % (0-10); EOSINOPHILS # (AUTO) 0.1 10^3/uL (0.0-0.3); EOSINOPHILS % (AUTO) 0 % (0-10); HEMATOCRIT 27 % (40-54); HEMOGLOBIN 8.5 g/dL (13.3-17.7); LYMPHOCYTES # (AUTO) 0.9 10^3/uL (1.0-4.0); LYMPHOCYTES % (AUTO) 7 % (12-44); MEAN CORPUSCULAR HEMOGLOBIN 30 pg (25-34); MEAN CORPUSCULAR HGB CONC 32 g/dL (32-36); MEAN CORPUSCULAR VOLUME 94 fL (80-99); MEAN PLATELET VOLUME 11.2 fL (9.0-12.2); MONOCYTES # (AUTO) 1.1 10^3/uL (0.0-1.0); MONOCYTES % (AUTO) 9 % (0-12); NEUTROPHILS % (AUTO) 83 % (42-75); PLATELET COUNT 233 10^3/uL (130-400); WHITE BLOOD COUNT 12.1 10^3/uL (4.3-11.0)
[2023-02-10 04:57] LABS: POTASSIUM 4.4 MMOL/L (3.6-5.0)
[2023-02-10 04:58] LABS: CALCIUM 8.2 MG/DL (8.5-10.1)
[2023-02-10 04:59] LABS: TOTAL PROTEIN 6.8 GM/DL (6.4-8.2)
[2023-02-10 05:01] LABS: BILIRUBIN,TOTAL 1.1 MG/DL (0.1-1.0)
[2023-02-10 05:02] LABS: PHOSPHORUS 2.4 MG/DL (2.3-4.7)
[2023-02-10 05:03] LABS: CREATININE SERUM 1.1 MG/DL (0.60-1.30)
[2023-02-10 05:05] LABS: MAGNESIUM 2.1 MG/DL (1.6-2.4)
[2023-02-10 05:08] LABS: LYMPHOCYTES % (MANUAL) 5 %; MONOCYTES % (MANUAL) 6 %; NEUTROPHILS % (MANUAL) 85 %
[2023-02-10 05:09] LABS: BASOPHILS % (MANUAL) 1 %; ELLIPT/OVALOCYTES SLIGHT; POLYCHROMASIA SLIGHT; REACTIVE LYMPHOCYTES 3 %
[2023-02-10] MEDS: POTASSIUM CL 10MEQ/50ML IVPB 50 ML IV SCH (05:17)
[2023-02-10] MEDS: MAGNESIUM 1 GM/100 ML IVPB 100 ML IV SCH (05:17)
[2023-02-10] MEDS: POTASSIUM CHLORIDE 20 MEQ TABLET PO SCH (05:17)
[2023-02-10] MEDS: THERAPEUTIC MULTIVITAMIN W/MINERALS TABLET PO SCH (05:28)
[2023-02-10] MEDS: inSUlin ASPART 1 UNIT/0.01 ML (PER UNIT) SC SCH ×4 (05:28→20:47)
[2023-02-10 05:37] LABS: ALBUMIN 3.6 GM/DL (3.2-4.5)
--- NOTE | 2023-02-10 06:50 | Progress Note - Surgery ---
MONICA FORBES 02/10/23 0650: Subjective Date Seen by a Provider: Feb 10, 2023 Time Seen by a Provider: 06:15 Subjective/Events-last exam Patient is still having pain and puts it at a 6/10. He has been tolerating clear liquids and denies any stomach pain after consumption. States that he only had t o take pain medication once last night. Has not had a BM and has not ambulated at all. Denies any fever, chills, dizziness, chest pain, cough, nausea, vomiting. Review of Systems General: No Chills, No Night Sweats HEENT: No Head Aches, No Visual Changes Pulmonary: No Dyspnea, No Cough Cardiovascular: No: Chest Pain, Edema Gastrointestinal: Abdominal Pain; No: Nausea, Vomiting Genitourinary: No Dysuria, No Frequency Musculoskeletal: No: neck pain, shoulder pain Neurological: No: Change in speech, Confusion Objective Exam Vital Signs Date Time Temp Pulse Resp B/P (MAP) Pulse Ox O2 Delivery O2 Flow Rate FiO2 02/10/23 06:00 98 27 121/65 (83) 96 Nasal Cannula 2.00 02/10/23 05:00 87 13 131/89 (103) 99 Nasal Cannula 2.00 02/10/23 04:00 87 22 118/70 (86) 96 Nasal Cannula 2.00 02/10/23 04:00 95 Nasal Cannula 2.00 02/10/23 03:34 36.2 02/10/23 03:00 95 23 127/83 (98) 96 Nasal Cannula 2.00 02/10/23 02:00 98 25 113/69 (84) 96 Nasal Cannula 2.00 02/10/23 01:00 97 21 111/59 (76) 94 Nasal Cannula 2.00 02/10/23 01:00 100 02/10/23 00:00 96 25 132/76 (94) 94 Nasal Cannula 2.00 02/10/23 00:00 95 Room Air 02/09/23 23:41 36.1 02/09/23 23:00 98 24 120/70 (87) 97 Nasal Cannula 2.00 02/09/23 22:00 96 21 111/65 (80) 97 Nasal Cannula 2.00 02/09/23 21:00 91 23 112/70 (84) 96 Nasal Cannula 2.00 02/09/23 20:30 92 18 105/60 (75) 94 Nasal Cannula 2.00 02/09/23 20:01 35.8 02/09/23 19:15 93 Room Air 02/09/23 19:00 36.3 95 18 143/77 (99) 94 Room Air 02/09/23 19:00 96 02/09/23 18:00 80 19 128/69 (88) 92 Room Air 02/09/23 17:00 100 13 126/76 (93) 92 Room Air 02/09/23 16:18 Room Air 02/09/23 16:00 96 20 129/90 (103) 92 Room Air 02/09/23 15:30 36.8 02/09/23 15:10 Room Air 02/09/23 15:00 81 13 128/73 (91) 95 Nasal Cannula 2.00 02/09/23 14:00 94 22 111/73 (86) 93 Nasal Cannula 2.00 02/09/23 13:12 Nasal Cannula 2.00 02/09/23 13:00 96 22 114/72 (86) 94 Room Air 02/09/23 12:18 97 02/09/23 12:00 96 11 135/73 (93) 95 Room Air 02/09/23 11:20 Room Air 02/09/23 11:00 92 15 120/69 (86) 93 Room Air 02/09/23 10:00 92 20 97/66 (76) 90 Room Air 02/09/23 09:00 93 10 124/69 (87) 90 Room Air 02/09/23 08:34 91 02/09/23 08:00 98 13 116/78 (91) 98 Room Air 02/09/23 07:57 93 02/09/23 07:50 Room Air 02/09/23 07:47 36.2 02/09/23 07:00 93 19 99/67 (78) 91 Room Air I & O 02/10/23 07:00 Intake Total 3025 ml Output Total 1925 ml Balance 1100 ml Capillary Refill : Less Than 3 Seconds General Appearance: No Apparent Distress, Anxious, Chronically ill, Thin HEENT: PERRL/EOMI, Moist Mucous Membranes; No Pale Conjunctivae (L), No Pale Conjunctivae (R) Neck: Non Tender Respiratory: Lungs Clear, Normal Breath Sounds, No Accessory Muscle Use, No Respiratory Distress Cardiovascular: Regular Rate, Rhythm, No Murmur Peripheral Pulses: 2+ Dorsalis Pedis (R), 2+ Left Dors-Pedis (L), 2+ Radial Pulses (R), 2+ Radial Pulses (L) Gastrointestinal: soft, guarding (Voluntary ), tenderness (Diffuse, barely touching elicits pain at times but can also palpate deeply with no pain) Extremity: Normal Inspection Neurologic/Psychiatric: Alert, Oriented x3, Normal Mood/Affect Skin: Normal Color, Warm/Dry Results Lab Laboratory Tests 02/09/23 11:56: Glucometer 185H 02/09/23 18:16: Glucometer 156H 02/09/23 23:20: Glucometer 142H 02/10/23 04:06: White Blood Count 12.1H, Red Blood Count 2.85L, Hemoglobin 8.5L, Hematocrit 27L, Mean Corpuscular Volume 94, Mean Corpuscular Hemoglobin 30, Mean Corpuscular Hemoglobin Concent 32, Red Cell Distribution Width 16.6H, Platelet Count 233, Mean Platelet Volume 11.2, Immature Granulocyte % (Auto) 0, Neutrophils (%) (Auto) 83H, Lymphocytes (%) (Auto) 7L, Monocytes (%) (Auto) 9, Eosinophils (%) (Auto) 0, Basophils (%) (Auto) 1, Neutrophils # (Auto) 10.0H, Lymphocytes # (Auto) 0.9L, Monocytes # (Auto) 1.1H, Eosinophils # (Auto) 0.1, Basophils # (Auto) 0.1, Immature Granulocyte # (Auto) 0.1, Neutrophils % (Manual) 85, Lymphocytes % (Manual) 5, Monocytes % (Manual) 6, Basophils % (Manual) 1, Reactive Lymphocytes 3, Polychromasia SLIGHT, Elliptocytes SLIGHT, Sodium Level 134L, Potassium Level 4.4, Chloride Level 102, Carbon Dioxide Level 21, Anion Gap 11, Blood Urea Nitrogen 20H, Creatinine 1.10, Estimat Glomerular Filtration Rate 74, BUN/Creatinine Ratio 18, Glucose Level 174H, Calcium Level 8.2L, Corrected Calcium 8.5, Phosphorus Level 2.4, Magnesium Level 2.1, Total Bilirubin 1.1H, Aspartate Amino Transf (AST/SGOT) 17, Alanine Aminotransferase (ALT/SGPT) 15, Alkaline Phosphatase 89, Total Protein 6.8, Albumin 3.6 02/10/23 05:23: Glucometer 191H Assessment/Plan Assessment/Plan Assessment/Plan diffuse abdominal pain anemia - 8.5 this morning hemocult blood in stool Clear liquids, possible bland/ulcer diet? Continue protonix WBC has increased from 10.5 to 12.1 as of this morning Should be moved to 4th floor Continue to monitor Clinical Quality Measures DVT/VTE Risk/Contraindication: Contraindications-Pharm: Other *list below* Other: TAYLOR Joseph DO 02/10/23 1132: Subjective Subjective/Events-last exam Abdominal pain a little better today he states. Tolerating clears. No bm. Hgb stable. WBC 12.1 hgb 8.5. Denies n/v fever sweats chills shortness of breath or chest pain. Objective Exam General Appearance: No Apparent Distress, Chronically ill, Thin HEENT: PERRL/EOMI, Normal ENT Inspection Neck: Normal Inspection, Non Tender Respiratory: Chest Non Tender, No Accessory Muscle Use, No Respiratory Distress Cardiovascular: Regular Rate, Rhythm, No JVD Gastrointestinal: soft, tenderness (at times has tenderness with palpation but also can have no pain with deep palpation, inconsitent patient response to exam) Neurologic/Psychiatric: Alert, Oriented x3, Normal Mood/Affect Skin: Normal Color, Warm/Dry Lymphatic: No Adenopathy Assessment/Plan Assessment/Plan Assessment/Plan diffuse abdominal pain anemia - 8.5 this morning hemocult blood in stool CAD Clear liquids Continue protonix/carafate WBC has increased from 10.5 to 12.1 as of this morning Ct scan yesterday reviewed with him. Supervisory-Addendum Brief Verification & Attestation Participated in pt care: history, MDM, physical Personally performed: exam, history, MDM, supervision of care Care discussed with: Medical Student Procedures: n/a Results interpretation: Verified all documentation Verification and Attestation of Medical Student E/M Service A medical student performed and documented this service in my presence. I reviewed and verified all information documented by the medical student and made modifications to such information, when appropriate. I personally performed the physical exam and medical decision making. Tayolr Babin, Feb 10, 2023,11:34 MONICA FORBES Feb 10, 2023 06:50 TAYLOR BABIN DO Feb 10, 2023 11:32
[2023-02-10] MEDS: SENNOSIDES 8.6 MG TABLET PO SCH ×2 (08:11→19:36)
[2023-02-10] MEDS: DOCUSATE SODIUM 100 MG CAPSULE PO SCH ×2 (08:11→19:36)
[2023-02-10] MEDS: NORTRIPTYLINE 25 MG CAPSULE PO SCH ×2 (08:12→19:36)
[2023-02-10] MEDS: DULoxetine 30 MG CAPSULE PO SCH (08:12)
[2023-02-10] MEDS: PANTOPRAZOLE INJECTION 40 MG VIAL IV SCH ×2 (08:13→19:36)
[2023-02-10] MEDS: FERROUS SULFATE 325 MG (IRON) TABLET PO SCH (08:13)
[2023-02-10] MEDS: MAGNESIUM OXIDE 400 MG TABLET PO SCH (08:13)
--- NOTE | 2023-02-10 08:59 | Cardiology Progress Note ---
Subjective Date Seen by Provider: Feb 10, 2023 Time Seen by Provider: 08:58 Subjective/Events-last exam Patient was seen at bedside, has been complaining of abdominal pain and mild chest discomfort, this morning feeling better but complaining that he has been constipated and did not have a bowel movement for 5 days. Feeling gas pain in his abdomen Objective-Cardiology Exam Last Set of Vital Signs Vital Signs 02/10/23 02/10/23 06:00 07:57 Temp 36.2 Pulse 98 Resp 27 B/P (MAP) 121/65 (83) Pulse Ox 96 O2 Delivery Nasal Cannula O2 Flow Rate 2.00 I&O Intake and Output 02/10/23 00:00 Intake Total 1965 ml Output Total 1750 ml Balance 215 ml Intake Oral 465 ml IV Total 1500 ml Output Urine Total 1750 ml General: Alert, Oriented X3, Cooperative HEENT: Atraumatic, PERRLA Neck: Supple, No JVD, No Thyromegaly Lungs: Clear to Auscultation, Normal Air Movement Heart: Regular Rate, Normal S1, Normal S2, No Murmurs Abdomen: Soft, No Tenderness, No Hepatosplenomegaly, No Masses, Other (Diminished bowel sounds) Extremities: No Clubbing, No Cyanosis, No Edema, Normal Pulses, No Tenderness/Swelling Skin: No Rashes, No Breakdown, No Significant Lesion Neuro: Normal Speech, Normal Tone, Sensation Intact Psych/Mental Status: Mental Status NL, Mood NL Results Lab Laboratory Tests 02/10/23 04:06 A/P-Cardiology Admission Diagnosis Chest pain Acute abdomen Coronary artery disease Hypertension Assessment/Plan Chest pain resembling angina Extensive cardiac history EKG showing paced rhythm Cardiac enzymes are negative, repeat cardiac enzymes on February 10, 2023 was normal Patient will need to have a stress test once clinically stable Abdominal pain, questionable acute abdomen CT scan of the abdomen did not show any acute abnormality Followed and managed by surgical team Coronary artery disease. History of CABG x2 done in 1995, redo surgery CABG x3 done in 2014, had a stent done in [address] Paz in [place] No recent cardiac work-up. I will evaluate 2D echo Continue to monitor rhythm History of permanent pacemaker, placed in 2019. Currently in paced rhythm Hypertension, resume home medication monitor blood pressure Hyperlipidemia, monitor lipids Diabetes mellitus, followed and managed by primary care team Preoperative cardiac evaluation, patient is considered at high risk for perioperative cardiovascular complication, had extensive cardiac history and no recent cardiac work-up and recurrent chest pain. Decision regarding surgery, risk versus benefit is deferred to the surgeon JOAQUIM RAMOS MD Feb 10, 2023 08:59
--- NOTE | 2023-02-10 09:15 | Progress Note ---
YENNY CLAROS 02/10/23 0915: Subjective Date Seen by a Provider: Feb 10, 2023 Time Seen by a Provider: 08:36 Subjective/Events-last exam CC: GI Bleed HPI: Yuri, 67M, notes that his abdominal pain that was present at admission has decreased. He rates the abdominal pain at a 4/10, noting that it is dull and still in the midline, epigastric region. He also notes that he has more bloating today that is causing discomfort. He says that he is passing gas, but has not had a BM since 02/06. He also says that the pressure in his stomach makes him feel like it is harder to breathe. Additionally, he has a new headache today. Yesterday his diet was advanced to clear liquids, and Yuri said that it caused him no issues. He notes that it did not increase nor decrease his abdominal pain. Yuri appears uncomfortable due to the gas, but thinks the tums will help. He has no other concerns. Review of Systems General: No Fatigue HEENT: Head Aches; No Visual Changes Pulmonary: Other (SOB) Cardiovascular: No: Chest Pain, Edema Gastrointestinal: Abdominal Pain, Constipation; No: Nausea, Vomiting Genitourinary: No Dysuria, No Frequency Musculoskeletal: neck pain Neurological: No: Weakness, Numbness, Change in speech, Confusion Objective Exam Last Set of Vital Signs Vital Signs Date Time Temp Pulse Resp B/P (MAP) Pulse Ox O2 Delivery O2 Flow Rate FiO2 02/10/23 07:57 36.2 02/10/23 06:00 98 27 96 Nasal Cannula 2.00 Capillary Refill : Less Than 3 Seconds I&O Intake and Output 02/10/23 00:00 Intake Total 1965 ml Output Total 1750 ml Balance 215 ml Intake Oral 465 ml IV Total 1500 ml Output Urine Total 1750 ml General: Alert, Oriented X3, Cooperative, No Acute Distress HEENT: Mucous Memb Moist/[place] Neck: Supple Lungs: Clear to Auscultation, Normal Air Movement Heart: Regular Rate, Normal S1, Normal S2, No Murmurs Abdomen: Normal Bowel Sounds, Other (tenderness, LLQ fullness, negative rebound tenderness, decreased pain on deep palpation, no skin changes ) Extremities: No Edema, Normal Pulses Skin: No Significant Lesion Neuro: Normal Gait, Normal Speech, Sensation Intact Results Lab Laboratory Tests 02/09/23 11:56: Glucometer 185H 02/09/23 18:16: Glucometer 156H 02/09/23 23:20: Glucometer 142H 02/10/23 04:06: White Blood Count 12.1H, Red Blood Count 2.85L, Hemoglobin 8.5L, Hematocrit 27L, Mean Corpuscular Volume 94, Mean Corpuscular Hemoglobin 30, Mean Corpuscular Hemoglobin Concent 32, Red Cell Distribution Width 16.6H, Platelet Count 233, Mean Platelet Volume 11.2, Immature Granulocyte % (Auto) 0, Neutrophils (%) (Auto) 83H, Lymphocytes (%) (Auto) 7L, Monocytes (%) (Auto) 9, Eosinophils (%) (Auto) 0, Basophils (%) (Auto) 1, Neutrophils # (Auto) 10.0H, Lymphocytes # (Auto) 0.9L, Monocytes # (Auto) 1.1H, Eosinophils # (Auto) 0.1, Basophils # (Auto) 0.1, Immature Granulocyte # (Auto) 0.1, Neutrophils % (Manual) 85, Lymphocytes % (Manual) 5, Monocytes % (Manual) 6, Basophils % (Manual) 1, Reactive Lymphocytes 3, Polychromasia SLIGHT, Elliptocytes SLIGHT, Sodium Level 134L, Potassium Level 4.4, Chloride Level 102, Carbon Dioxide Level 21, Anion Gap 11, Blood Urea Nitrogen 20H, Creatinine 1.10, Estimat Glomerular Filtration Rate 74, BUN/Creatinine Ratio 18, Glucose Level 174H, Calcium Level 8.2L, Corrected Calcium 8.5, Phosphorus Level 2.4, Magnesium Level 2.1, Total Bilirubin 1.1H, Aspartate Amino Transf (AST/SGOT) 17, Alanine Aminotransferase (ALT/SGPT) 15, Alkaline Phosphatase 89, Total Protein 6.8, Albumin 3.6 02/10/23 05:23: Glucometer 191H 02/10/23 08:08: Troponin I < 0.028 Microbiology 02/08/23 MRSA Screen - Final, Complete MRSA not isolated Assessment/Plan Assessment/Plan Assess & Plan/Chief Complaint 02/09/2023: A/P -GI Bleed * Dr. Chun consulted * monitor for hemodynamic changes * CT negative for acute bleed 02/09 * tx to 4th floor -Constipation * Gas pain present * Ambulation * Anti-constipation medications per orders -Anemia * Hgb improved to 8.3 (from 8.3) -ASH * Prerenal presentation * IV Fluid -Chest Pain * Dr. Heard Consulted * Nitroglycerin patch Clinical Quality Measures Admission Status Admission Dx 02/08/2023: A/P -GI Bleed * Dr. Chun consulted * monitor for hemodynamic changes * CT negative for acute bleed 02/09 * LDH order -Anemia * Type/cross match * 1 unit available -ASH * Prerenal presentation * IV Fluid -Chest Pain * Dr. Heard Consulted * Nitroglycerin patch * negative troponin, repeat DVT/VTE Risk/Contraindication: Contraindications-Pharm: Other *list below* Other: RYLEE Funes DO 02/10/232025: Subjective Subjective/Events-last exam Overall improved No falls Reviewed meds and labs Pain controlled Objective Exam General: Alert, Oriented X3, Cooperative, No Acute Distress Lungs: Clear to Auscultation, Normal Air Movement Heart: Regular Rate, Normal S1, Normal S2, No Murmurs Psych/Mental Status: Mental Status NL, Mood NL Assessment/Plan Assessment/Plan Assess & Plan/Chief Complaint Hold ASA and OAC Move to 4th floor Supervisory-Addendum Brief Verification & Attestation Participated in pt care: history, MDM, physical Personally performed: exam, history, MDM, supervision of care Care discussed with: Medical Student Procedures: n/a Results interpretation: Verified all documentation Verification and Attestation of Medical Student E/M Service A medical student performed and documented this service in my presence. I reviewed and verified all information documented by the medical student and made modifications to such information, when appropriate. I personally performed the physical exam and medical decision making. Rylee Cordova Feb 10, 2023,20:25 YENNY CLAROS Feb 10, 2023 09:15 RYLEE CORDOVA DO Feb 10, 2023 20:26
[2023-02-10] MEDS: oxyCODONE IMMEDIATE RELEASE 5 MG TABLET PO PRN ×3 (09:46→20:38)
--- NOTE | 2023-02-10 10:29 | Tele-ICU Progress Note ---
Subjective Date Seen by a Provider: Feb 10, 2023 Time Seen by a Provider: 10:28 Subjective/Events-last exam (Tele-ICU Physician , Progress Note ) Service provided via interactive audio and video telecommunications E-CARE system to a patient admitted to ICU bed in [facility]. Patient is seen today due to persistent need of ICU care Available chart/ vitals / labs / Images reviewed Video assessment done using teleICU camera, rest of exam as per RN Discussed with RN Events overnight : Afebrile hemodynamically stable Respiratory - 2l I/O = + Drips: NS 75 Pressors- no Hospital course: (02/08) 67M Admitted from outside ER for GIB, ASH.Was having CP radiating to back,and abdominal pain. Positive stool occult blood/anemia (02/09)- Cardiology consulted for CP, cardiac enzymes(-) stress test vs cardiac cath in the future once abdominal pain is resolved. A/P CAD, s/p CABG x2 , -angina?, neg trop -EKG paced rhythm -ECHO ordered - cards consulted : "consider stress test versus cardiac catheterization once his abdominal pain resolved abdomen pain - CT - No bowel obstruction. No obvious evidence of large GI bleed. -Surgical consult follows S/p permanent pacemaker, placed in 2019 -Currently in paced rhythm ASH - normalized - decrease IVF is allowed PO DM II - hold metformin. ISS Hypoxia -with opioids and Bilateral pleural effusions and bibasilar opacities - IS Lines : per , (Central Line Necessity Reviewed) Ford: void OG: Nutrition: po Analgesia: Anxiety/ delirium VTE Prophylaxis: scd Stress Ulcer Prophylaxis: PPi Plans in collaboration with bedside consultants and IM MDs. Discussed with RN to reach out if any questions or concerns Case and care daily discussed on multidisciplinary rounds ( RN, PharmD, Stick Welder , Respiratory Therapy, dish room worker ) A total of 22 minutes of critical care time was devoted to this patient today, required to treat and/or prevent further deterioration of critical care condition ( as above ) . I am remotely monitoring this patient from another state. I am unable to do the bedside exam, and history/physical and pertinent information is taken from other notes in the computer and bedside staff. Sepsis Event Evaluation Height, Weight, BMI Height: '" Weight: lbs. oz. kg; 23.69 BMI Method: Exam Exam Patient acknowledged, consented, and participated in this virtual visit which was conducted using real time audio/video Vital Signs Date Time Temp Pulse Resp B/P (MAP) Pulse Ox O2 Delivery O2 Flow Rate FiO2 02/10/23 08:00 95 Nasal Cannula 2.00 02/10/23 07:57 36.2 02/10/23 07:00 90 02/10/23 06:00 98 27 121/65 (83) 96 Nasal Cannula 2.00 02/10/23 05:00 87 13 131/89 (103) 99 Nasal Cannula 2.00 02/10/23 04:00 87 22 118/70 (86) 96 Nasal Cannula 2.00 02/10/23 04:00 95 Nasal Cannula 2.00 02/10/23 03:34 36.2 02/10/23 03:00 95 23 127/83 (98) 96 Nasal Cannula 2.00 02/10/23 02:00 98 25 113/69 (84) 96 Nasal Cannula 2.00 02/10/23 01:00 97 21 111/59 (76) 94 Nasal Cannula 2.00 02/10/23 01:00 100 02/10/23 00:00 96 25 132/76 (94) 94 Nasal Cannula 2.00 02/10/23 00:00 95 Room Air 02/09/23 23:41 36.1 02/09/23 23:00 98 24 120/70 (87) 97 Nasal Cannula 2.00 02/09/23 22:00 96 21 111/65 (80) 97 Nasal Cannula 2.00 02/09/23 21:00 91 23 112/70 (84) 96 Nasal Cannula 2.00 02/09/23 20:30 92 18 105/60 (75) 94 Nasal Cannula 2.00 02/09/23 20:01 35.8 02/09/23 19:15 93 Room Air 02/09/23 19:00 36.3 95 18 143/77 (99) 94 Room Air 02/09/23 19:00 96 02/09/23 18:00 80 19 128/69 (88) 92 Room Air 02/09/23 17:00 100 13 126/76 (93) 92 Room Air 02/09/23 16:18 Room Air 02/09/23 16:00 96 20 129/90 (103) 92 Room Air 02/09/23 15:30 36.8 02/09/23 15:10 Room Air 02/09/23 15:00 81 13 128/73 (91) 95 Nasal Cannula 2.00 02/09/23 14:00 94 22 111/73 (86) 93 Nasal Cannula 2.00 02/09/23 13:12 Nasal Cannula 2.00 02/09/23 13:00 96 22 114/72 (86) 94 Room Air 02/09/23 12:18 97 02/09/23 12:00 96 11 135/73 (93) 95 Room Air 02/09/23 11:20 Room Air 02/09/23 11:00 92 15 120/69 (86) 93 Room Air I & O 02/10/23 07:00 Intake Total 3025 ml Output Total 1925 ml Balance 1100 ml Height & Weight Height: '" Weight: lbs. oz. kg; 23.69 BMI Method: General Appearance: No Apparent Distress, Anxious, Chronically ill, Thin HEENT: PERRL/EOMI, Moist Mucous Membranes; No Pale Conjunctivae (L), No Pale Conjunctivae (R) Neck: Non Tender Respiratory: Lungs Clear, Normal Breath Sounds, No Accessory Muscle Use, No Respiratory Distress Cardiovascular: Regular Rate, Rhythm, No Murmur Capillary Refill: Less Than 3 Seconds Peripheral Pulses: 2+ Dorsalis Pedis (R), 2+ Left Dors-Pedis (L), 2+ Radial Pulses (R), 2+ Radial Pulses (L) Gastrointestinal: soft, guarding (Voluntary ), tenderness (Diffuse, barely touching elicits pain at times but can also palpate deeply with no pain) Extremity: Normal Inspection Neurologic/Psychiatric: Alert, Oriented x3, Normal Mood/Affect Skin: Normal Color, Warm/Dry Results Lab Laboratory Tests 02/08/23 23:01 02/09/23 04:04 02/10/23 04:06 Assessment/Plan Assessment/Plan 1 EDWARD EPSTEIN MD Feb 10, 2023 10:29
[2023-02-10 16:00] VITALS: BP 114/70
[2023-02-10] MEDS: SUCRALFATE 1 GM TABLET PO SCH ×2 (16:25→19:36)
[2023-02-10 19:52] VITALS: BP 120/58
[2023-02-11] VITALS: BP 102/70
[2023-02-11 04:15] VITALS: BP 99/54
[2023-02-11] MEDS: inSUlin ASPART 1 UNIT/0.01 ML (PER UNIT) SC SCH ×2 (05:39→11:59)
[2023-02-11] MEDS: THERAPEUTIC MULTIVITAMIN W/MINERALS TABLET PO SCH (05:51)
[2023-02-11] MEDS: SUCRALFATE 1 GM TABLET PO SCH ×2 (05:51→11:59)
[2023-02-11 05:59] LABS: BASOPHILS # (AUTO) 0.1 10^3/uL (0.0-0.1); BASOPHILS % (AUTO) 1 % (0-10); EOSINOPHILS # (AUTO) 0.2 10^3/uL (0.0-0.3); EOSINOPHILS % (AUTO) 2 % (0-10); HEMATOCRIT 26 % (40-54); HEMOGLOBIN 8.3 g/dL (13.3-17.7); LYMPHOCYTES # (AUTO) 1.1 10^3/uL (1.0-4.0); LYMPHOCYTES % (AUTO) 13 % (12-44); MEAN CORPUSCULAR HEMOGLOBIN 31 pg (25-34); MEAN CORPUSCULAR HGB CONC 32 g/dL (32-36); MEAN CORPUSCULAR VOLUME 94 fL (80-99); MEAN PLATELET VOLUME 10.9 fL (9.0-12.2); MONOCYTES # (AUTO) 0.8 10^3/uL (0.0-1.0); MONOCYTES % (AUTO) 10 % (0-12); NEUTROPHILS # (AUTO) 6.3 10^3/uL (1.8-7.8); NEUTROPHILS % (AUTO) 75 % (42-75); PLATELET COUNT 217 10^3/uL (130-400); WHITE BLOOD COUNT 8.4 10^3/uL (4.3-11.0)
[2023-02-11 06:06] LABS: ALBUMIN 3.2 GM/DL (3.2-4.5); POTASSIUM 3.6 MMOL/L (3.6-5.0)
[2023-02-11 06:07] LABS: CALCIUM 7.9 MG/DL (8.5-10.1)
[2023-02-11 06:08] LABS: TOTAL PROTEIN 6.2 GM/DL (6.4-8.2)
[2023-02-11 06:10] LABS: BILIRUBIN,TOTAL 0.9 MG/DL (0.1-1.0)
[2023-02-11 06:12] LABS: CREATININE SERUM 1.1 MG/DL (0.60-1.30)
--- NOTE | 2023-02-11 06:22 | Progress Note - Surgery ---
MONICA FORBES 02/11/23 0622: Subjective Date Seen by a Provider: Feb 11, 2023 Time Seen by a Provider: 06:10 Subjective/Events-last exam Patient states that his pain is getting much better and puts it at a 2-3/10. He is on a liquid diet and is tolerating it well, no pain after drinking. No BM yet. Abdominal tenderness has improved and he only elicited pain when pressing into the RLQ. Denies any fever, chills, nausea, vomiting. Review of Systems General: No Chills, No Night Sweats HEENT: No Head Aches, No Visual Changes, No Eye Pain Pulmonary: No Dyspnea, No Cough Cardiovascular: No: Chest Pain, Edema Gastrointestinal: Abdominal Pain; No: Nausea, Vomiting Genitourinary: No Dysuria, No Frequency Musculoskeletal: neck pain, back pain Neurological: No: Weakness, Change in speech Objective Exam Vital Signs Date Time Temp Pulse Resp B/P (MAP) Pulse Ox O2 Delivery O2 Flow Rate FiO2 02/11/23 04:15 36.5 78 22 99/54 (69) 93 02/11/23 00:00 36.5 94 20 102/70 (81) 93 Room Air 02/10/23 20:00 Room Air 02/10/23 19:52 36.9 89 16 120/58 (78) 96 Room Air 02/10/23 16:00 37.1 88 21 114/70 (85) 96 Room Air 02/10/23 13:00 93 22 108/81 (90) 97 Nasal Cannula 2.00 02/10/23 13:00 93 02/10/23 12:26 92 14 118/86 (97) 93 Nasal Cannula 2.00 02/10/23 11:25 36.1 02/10/23 11:00 89 22 123/59 (80) 94 Nasal Cannula 2.00 02/10/23 10:00 92 22 133/76 (95) 97 Nasal Cannula 2.00 02/10/23 09:00 101 23 109/72 (84) 100 Nasal Cannula 2.00 02/10/23 08:00 96 21 149/86 (107) 98 Nasal Cannula 2.00 02/10/23 08:00 95 Nasal Cannula 2.00 02/10/23 07:57 36.2 02/10/23 07:00 84 14 130/76 (94) 97 Nasal Cannula 2.00 02/10/23 07:00 90 I & O 02/11/23 07:00 Intake Total 1025 ml Balance 1025 ml Capillary Refill : Less Than 3 Seconds General Appearance: No Apparent Distress, Chronically ill, Thin HEENT: PERRL/EOMI, Pharynx Normal Respiratory: Chest Non Tender, No Accessory Muscle Use, No Respiratory Distress Cardiovascular: Regular Rate, Rhythm, No JVD Peripheral Pulses: 2+ Dorsalis Pedis (R), 2+ Left Dors-Pedis (L), 2+ Radial Pulses (R), 2+ Radial Pulses (L) Gastrointestinal: soft, tenderness (RLQ tenderness, mild discomfort diffusely on palpation) Neurologic/Psychiatric: Alert, Oriented x3, Normal Mood/Affect Skin: Normal Color, Warm/Dry Results Lab Laboratory Tests 02/10/23 08:08: Troponin I < 0.028 02/10/23 10:41: Glucometer 185H 02/10/23 15:37: Glucometer 160H 02/10/23 19:41: Glucometer 266H 02/10/23 20:41: Glucometer 256H 02/11/23 05:34: Glucometer 121H 02/11/23 05:35: White Blood Count 8.4, Red Blood Count 2.72L, Hemoglobin 8.3L, Hematocrit 26L, Mean Corpuscular Volume 94, Mean Corpuscular Hemoglobin 31, Mean Corpuscular Hemoglobin Concent 32, Red Cell Distribution Width 16.6H, Platelet Count 217, Mean Platelet Volume 10.9, Immature Granulocyte % (Auto) 0, Neutrophils (%) (Auto) 75, Lymphocytes (%) (Auto) 13, Monocytes (%) (Auto) 10, Eosinophils (%) (Auto) 2, Basophils (%) (Auto) 1, Neutrophils # (Auto) 6.3, Lymphocytes # (Auto) 1.1, Monocytes # (Auto) 0.8, Eosinophils # (Auto) 0.2, Basophils # (Auto) 0.1, Immature Granulocyte # (Auto) 0.0, Sodium Level 135, Potassium Level 3.6, Chloride Level 103, Carbon Dioxide Level 24, Anion Gap 8, Blood Urea Nitrogen 17, Creatinine 1.10, Estimat Glomerular Filtration Rate 74, BUN/Creatinine Ratio 15, Glucose Level 108H, Calcium Level 7.9L, Corrected Calcium 8.5, Magnesium Level 2.0, Total Bilirubin 0.9, Aspartate Amino Transf (AST/SGOT) 19, Alanine Aminotransferase (ALT/SGPT) 15, Alkaline Phosphatase 84, Total Protein 6.2L, Albumin 3.2 Microbiology 02/08/23 MRSA Screen - Final, Complete MRSA not isolated Assessment/Plan Assessment/Plan Assessment/Plan Diffuse abdominal pain anemia - 8.3 this morning hemocult blood in stool CAD Advanced diet to ulcer/bland Continue protonix, carafate Pain management as needed Ambulate Clinical Quality Measures DVT/VTE Risk/Contraindication: Contraindications-Pharm: Other *list below* Other: TAYLOR Joseph DO 02/12/23 1049: Subjective Subjective/Events-last exam Feeling much better. Tolerating diet. Wanting to go home. Denies any new complaints. Denies n/v fever sweats chills shortness of breath or chest pain. Objective Exam General Appearance: No Apparent Distress, Chronically ill, Thin HEENT: PERRL/EOMI, Normal ENT Inspection Neck: Full Range of Motion, Non Tender, Supple Respiratory: Chest Non Tender, No Accessory Muscle Use, No Respiratory Distress Cardiovascular: Regular Rate, Rhythm, No JVD Gastrointestinal: soft, tenderness (RLQ tenderness, minimal discomfort diffusely on palpation-continues to improve) Extremity: Non Tender, No Calf Tenderness Neurologic/Psychiatric: Alert, Oriented x3, Normal Mood/Affect Skin: Normal Color, Warm/Dry Lymphatic: No Adenopathy Assessment/Plan Assessment/Plan Assessment/Plan Diffuse abdominal pain anemia - 8.3 this morning hemocult blood in stool CAD Advanced diet to ulcer/bland Continue protonix, carafate Pain management as needed Ambulate Protonix Outpatient follow up. Supervisory-Addendum Brief Verification & Attestation Participated in pt care: history, MDM, physical Personally performed: exam, history, MDM, supervision of care Care discussed with: Medical Student Procedures: n/a Results interpretation: Verified all documentation Verification and Attestation of Medical Student E/M Service A medical student performed and documented this service in my presence. I reviewed and verified all information documented by the medical student and made modifications to such information, when appropriate. I personally performed the physical exam and medical decision making. Taylor Babin, Feb 11, 2023,10:16 MONICA FORBES Feb 11, 2023 06:22 TAYLOR BABIN DO Feb 12, 2023 10:49
[2023-02-11 07:22] VITALS: BP 106/67
--- NOTE | 2023-02-11 07:37 | Physical Therapy Evaluation ---
PT Evaluation-General Medical Diagnosis Admission Date Feb 08, 2023 at 22:40 Medical Diagnosis: GI Bleed Onset Date: Feb 08, 2023 Therapy Diagnosis Therapy Diagnosis: debility Precautions Precautions/Isolations: Standard Precautions Referral Physician: Brando Reason for Referral: Evaluation/Treatment Medical History Pertinent Medical History: CABG, CAD Current History Direct admit secondary to abdominal pain and GI bleed Reviewed History: Yes Social History Home: Single Level Current Living Status: Alone Prior Prior Level of Function SCALE: Activities may be completed with or without assistive devices. 5-Nurierlgaw-fewwrwv completes the activity by him/herself with no assistance from a helper. 5-Set-up or Clean-up Assistance-helper sets up or cleans up; patient completes activity. [place] assists only prior to or following the activity. 4-Supervision or Touching Assistance-helper provides verbal cues and/or touching/steadying and/or contact guard assistance as patient completes activity. Assistance may be provided throughout the activity or intermittently. 3-Partial/Moderate Assistance-helper does LESS THAN HALF the effort. [place] lifts, holds or supports trunk or limbs, but provides less than half the effort. 2-Substantial/Maximal Assistance-helper does MORE THAN HALF the effort. [place] lifts or holds trunk or limbs and provides more than half the effort. 9-Wdrajjgzl-wjgnze does ALL the effort. Patient does none of the effort to complete the activity. Or, the assistance of 2 or more helpers is required for the patient to complete the activity. If activity was not attempted, code reason: 7-Patient Refused. 9-Not Applicable-not attempted and the patient did not perform the activity before the current illness, exacerbation or injury. 10-Not Attempted due to Environmental Limitations-(lack of equipment, weather restraints, etc.). 88-Not Attempted due to Medical Conditions or Safety Concerns. Bed Mobility: 6 Transfers (B,C,W/C): 6 Gait: 6 Stairs: 6 Indoor Mobility (Ambulation): Independent Stairs: Independent Prior Devices Use: None PT Evaluation-Current Subjective Patient agrees to PT. Objective Patient Orientation: Normal For Age ROM/Strength ROM Lower Extremities bilateral LE WFL Strength Lower Extremities 5/5 grossly bilateral LE all planes Integumentary/Posture Bowel Incontinence: No Bladder Incontinence: No Posture WFL Neuromuscular (Tone, Coordination, Reflexes) grossly intact Sensory Vision: Functional Hearing: Functional Transfers Lying to Sitting/Side of Bed(Q: 6 Sit to Stand (QC): 6 Chair/Xup-um-Cjfaq Xfer(QC): 6 Gait Mode of Locomotion: Walk Anticipated Mode of Locomotion: Walk Walk 10 feet (QC): 6 Walk 50 ft with 2 Turns(QC): 6 Walk 150 ft (QC): 6 Distance: 500' Gait Assistive Device: None Comments/Gait Description safe and functional with no deviation Balance Sitting Static: Normal Sitting Dynamic: Normal Standing Static: Normal Standing Dynamic: Normal Picking up an Object (QC): 6 Assessment/Needs Patient is currently at [facility] with all gross motor skills safely and does not require skilled PT intervention at this time. Rehab Potential: Fair PT Plan Treatment/Plan Treatment Plan: Discontinue PT, goals met Treatment Duration: Feb 11, 2023 Frequency: 1 time per week Estimated Hrs Per Day: .25 hour per day Patient and/or Family Agrees t: Yes Time Time In: 715 Time Out: 730 DATE: Feb 11, 2023 Total Billed Treatment Time: 15 Total Billed Treatment 1 visit [facility] 15 min SANTOSH TENA PT Feb 11, 2023 07:37
[2023-02-11] MEDS: NORTRIPTYLINE 25 MG CAPSULE PO SCH (08:32)
[2023-02-11] MEDS: DULoxetine 30 MG CAPSULE PO SCH (08:32)
[2023-02-11] MEDS: FERROUS SULFATE 325 MG (IRON) TABLET PO SCH (08:32)
[2023-02-11] MEDS: SENNOSIDES 8.6 MG TABLET PO SCH (08:32)
[2023-02-11] MEDS: DOCUSATE SODIUM 100 MG CAPSULE PO SCH (08:32)
[2023-02-11] MEDS: PANTOPRAZOLE INJECTION 40 MG VIAL IV SCH (08:33)
--- NOTE | 2023-02-11 08:38 | Cardiology Progress Note ---
Subjective Date Seen by Provider: Feb 11, 2023 Time Seen by Provider: 08:37 Subjective/Events-last exam Patient was seen at bedside sitting comfortably, feeling better. No new complain Objective-Cardiology Exam Last Set of Vital Signs Vital Signs 02/11/23 02/11/23 07:22 08:28 Temp 37.5 Pulse 96 Resp 16 B/P (MAP) 106/67 (80) Pulse Ox 99 O2 Delivery Room Air O2 Flow Rate 0.00 I&O Intake and Output 02/11/23 00:00 Intake Total 2285 ml Output Total 475 ml Balance 1810 ml Intake Oral 1285 ml IV Total 1000 ml Output Urine Total 475 ml # Voids 4 General: Alert, Oriented X3, Cooperative, No Acute Distress HEENT: Atraumatic, PERRLA, Mucous Memb Moist/[place] Neck: Supple Lungs: Clear to Auscultation, Normal Air Movement Heart: Regular Rate, Normal S1, Normal S2, No Murmurs Abdomen: Normal Bowel Sounds, Soft, No Tenderness, No Hepatosplenomegaly Extremities: No Clubbing, No Cyanosis, No Edema, Normal Pulses Skin: No Rashes, No Breakdown, No Significant Lesion Neuro: Normal Gait, Normal Speech, Sensation Intact Psych/Mental Status: Mental Status NL, Mood NL Results Lab Laboratory Tests 02/11/23 05:35 A/P-Cardiology Admission Diagnosis Chest pain Acute abdomen Coronary artery disease Hypertension Assessment/Plan Chest pain resembling angina Extensive cardiac history EKG showing paced rhythm Cardiac enzymes are negative, repeat cardiac enzymes on February 10, 2023 was normal Patient will need to have a stress test as an outpatient. I instructed him to contact his primary telecom coordinator after discharge Abdominal pain, questionable acute abdomen, resolved CT scan of the abdomen did not show any acute abnormality Followed and managed by surgical team Coronary artery disease. History of CABG x2 done in 1995, redo surgery CABG x3 done in 2014, had a stent [place] [address] Paz in [place] No recent cardiac work-up. I will evaluate 2D echo Continue to monitor rhythm History of permanent pacemaker, placed in 2019. Currently in paced rhythm Hypertension, resume home medication monitor blood pressure Hyperlipidemia, monitor lipids Diabetes mellitus, followed and managed by primary care team JOAQUIM RAMOS MD Feb 11, 2023 08:38
[2023-02-11] MEDS: MAGNESIUM OXIDE 400 MG TABLET PO SCH (08:45)
--- NOTE | 2023-02-11 09:00 | Progress Note ---
YENNY CLAROS 02/11/23 0900: Subjective Date Seen by a Provider: Feb 11, 2023 Time Seen by a Provider: 07:45 Subjective/Events-last exam CC: GI Bleed HPI: Yuri, 67M, notes that he is feeling better today. He says that his abdominal pain has mostly subsided. He says he only has pain if he touches his stomach in the LLQ region (a change from the RLQ on 02/10). He said that he is no longer having any issues with bloating or pressure in his stomach. He also notes that the chest pain has subsided. He is saying that he would like to go home if there are no other issues. He has not had a BM yet, but is passing gas. He is also still on his clear liquid diet and says that this is the reason he is unable to have a BM is that he cannot eat. He has no other concerns. Course: Yuri is a 67-year-old male that presented to the [facility] ED on 02/08 due to mid-epigastric pain. In the ED it was found that he had blood in his stool, sug gesting a GI bleed. Yuri was transferred to the hospital on 02/08 and was placed in the ICU due to acuity of care. In the ICU, Yuri noted intense pain in the epigastric region that was a 8/10. The pain moved from his left arm to his stomach. Surgery was consulted to review any need for intervention. GI decided that a less aggressive approach would be best for Yuri and he was closely monitored. CT scan showed no acute bleeds, mild fluid free fluid in the abdomen, a small hiatal hernia, and BL pleural effusions. Given the chest pain mentioned, cardiology was consulted. After reviewing his PMH of cardiology interventions, Dr. Heard suggested further follow-up for stress testing on discharge, but no acute issues. To relieve the chest pain, a nitroglycerin patch was given and pain improved. His Hgb has remained stable, but at a lower level. There has been no change in Hgb or BP to suggest any acute blood loss. It is likely that there was mircoscopic blood loss causing positive heme in stool. On 02/10, Yuri showed improvement and was transferred to the 4th floor MED/SURG unit. Chepe diet was advanced to clear liquids without problem. Over his stay, surgery and cardiology have followed closely. On 02/10, Yuri also noted some GI discomfort with bloating, but this has resolved. His GI pain has also resolved. Yuri has not had a BM during his hospital stay, but is passing gas and has maintained NABS on physical exam. For discharge, Yuri will be returning home. There are no expected barriers to return to home. 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 Heard. As always, Yuri is instructed to return to the ED if acute return of symptoms. He has no other concerns. Review of Systems General: No Chills, No Fatigue HEENT: No Head Aches, No Visual Changes Pulmonary: No Cough, No Pleuritic Chest Pain Cardiovascular: No: Chest Pain, Edema Gastrointestinal: No: Nausea, Vomiting, Diarrhea, Constipation Genitourinary: No Dysuria Musculoskeletal: No: back pain Neurological: No: Weakness, Numbness, Change in speech, Confusion Objective Exam Last Set of Vital Signs Vital Signs Date Time Temp Pulse Resp B/P (MAP) Pulse Ox O2 Delivery O2 Flow Rate FiO2 02/11/23 08:28 99 Room Air 0.00 02/11/23 07:22 37.5 96 16 106/67 (80) Capillary Refill : Less Than 3 Seconds I&O Intake and Output 02/10/23 23:59 Intake Total 2285 ml Output Total 475 ml Balance 1810 ml Intake Oral 1285 ml IV Total 1000 ml Output Urine Total 475 ml # Voids 4 General: Alert, Oriented X3, Cooperative, No Acute Distress HEENT: Mucous Memb Moist/[place] Neck: Supple, No JVD Lungs: Clear to Auscultation, Normal Air Movement Heart: Regular Rate, Normal S1, Normal S2, No Murmurs Abdomen: Normal Bowel Sounds, Soft, Other (LLQ tenderness, has previous a ppendectomy noted ) Extremities: No Edema, Normal Pulses Neuro: Normal Gait, Normal Speech, Normal Tone, Sensation Intact Results Lab Laboratory Tests 02/10/23 10:41: Glucometer 185H 02/10/23 15:37: Glucometer 160H 02/10/23 19:41: Glucometer 266H 02/10/23 20:41: Glucometer 256H 10/26/23 05:34: Glucometer 121H 02/11/23 05:35: White Blood Count 8.4, Red Blood Count 2.72L, Hemoglobin 8.3L, Hematocrit 26L, Mean Corpuscular Volume 94, Mean Corpuscular Hemoglobin 31, Mean Corpuscular Hemoglobin Concent 32, Red Cell Distribution Width 16.6H, Platelet Count 217, Mean Platelet Volume 10.9, Immature Granulocyte % (Auto) 0, Neutrophils (%) (Auto) 75, Lymphocytes (%) (Auto) 13, Monocytes (%) (Auto) 10, Eosinophils (%) (Auto) 2, Basophils (%) (Auto) 1, Neutrophils # (Auto) 6.3, Lymphocytes # (Auto) 1.1, Monocytes # (Auto) 0.8, Eosinophils # (Auto) 0.2, Basophils # (Auto) 0.1, Immature Granulocyte # (Auto) 0.0, Sodium Level 135, Potassium Level 3.6, Chloride Level 103, Carbon Dioxide Level 24, Anion Gap 8, Blood Urea Nitrogen 17, Creatinine 1.10, Estimat Glomerular Filtration Rate 74, BUN/Creatinine Ratio 15, Glucose Level 108H, Calcium Level 7.9L, Corrected Calcium 8.5, Magnesium Level 2.0, Total Bilirubin 0.9, Aspartate Amino Transf (AST/SGOT) 19, Alanine Aminotransferase (ALT/SGPT) 15, Alkaline Phosphatase 84, Total Protein 6.2L, Albumin 3.2 Microbiology 02/08/23 MRSA Screen - Final, Complete MRSA not isolated Assessment/Plan Assessment/Plan Assess & Plan/Chief Complaint 02/11/2023: A/P -GI Bleed * Dr. Chun consulted * monitor for hemodynamic changes * CT negative for acute bleed 02/09 -Constipation * Passing gas, bloating resolved * NO BM * Ambulation * Anti-constipation medications per orders -Anemia * Hgb improved to 8.3 (from 8.3) -Chest Pain * Dr. Heard Consulted * Instructed for stress test/cardiology follow up at discharge * Nitroglycerin patch Clinical Quality Measures Admission Status Admission Dx 02/08/2023: A/P -GI Bleed * Dr. Chun consulted * monitor for hemodynamic changes * CT negative for acute bleed 02/09 * LDH order -Anemia * Type/cross match * 1 unit available -ASH * Prerenal presentation * IV Fluid -Chest Pain * Dr. Heard Consulted * Nitroglycerin patch * negative troponin, repeat DVT/VTE Risk/Contraindication: Contraindications-Pharm: Other *list below* Other: RYLEE Funes DO 02/12/23 0441: Supervisory-Addendum Brief Verification & Attestation Participated in pt care: history, MDM, physical Personally performed: exam, history, MDM, supervision of care Care discussed with: Medical Student Procedures: n/a Results interpretation: Verified all documentation Verification and Attestation of Medical Student E/M Service A medical student performed and documented this service in my presence. I reviewed and verified all information documented by the medical student and made modifications to such information, when appropriate. I personally performed the physical exam and medical decision making. Rylee Cordova, Feb 12, 2023,04:41 YENNY CLAROS Feb 11, 2023 09:00 RYLEE CORDOVA DO Feb 12, 2023 04:41
[2023-02-11 11:09] VITALS: BP 122/77
[2023-02-11] MEDS ORDERED: SUCR1TAB PO (11:36)
[2023-02-11] MEDS ORDERED: PANT40TA2 PO (11:36)
--- NOTE | 2023-02-11 11:37 | Discharge Summary ---
Diagnosis/Chief Complaint Date of Admission Feb 08, 2023 at 22:40 Date of Discharge Discharge Date: Feb 11, 2023 Discharge Diagnosis 02/08/2023: A/P -GI Bleed * Dr. Chun consulted * monitor for hemodynamic changes * CT negative for acute bleed 02/09 * LDH order -Anemia * Type/cross match * 1 unit available -ASH * Prerenal presentation * IV Fluid -Chest Pain * Dr. Heard Consulted * Nitroglycerin patch * negative troponin, repeat Reason Hospital Visit Chief complaint: GI bleed with midepigastric pain HPI: This is a 67-year-old male I accepted from [facility] due to extensive cardiology issues with suspected GI bleed with mid epigastric pain and Hemoccult positive stools. Currently he is still having a lot of pain so CT scan was obtained Revealing no significant issues or perforation. Cardiology has been consulted. Troponin has been negative. Holding anticoagulation and aspirin. Discharge Summary Discharge Physical Examination Allergies: Coded Allergies: No Known Drug Allergies (Unverified , 02/08/23) Vitals & I&Os Vital Signs Date Time Temp Pulse Resp B/P (MAP) Pulse Ox O2 Delivery O2 Flow Rate FiO2 02/11/23 14:14 36.7 94 16 122/77 97 Room Air 0.00 General Appearance: Alert, Oriented X3, Cooperative Respiratory: Clear to Auscultation Psych/Mental Status: Mental Status NL Hospital Course Was the Problem List Reviewed?: Yes Course: Yuri is a 67-year-old male that presented to the [facility] ED on 02/08 due to mid-epigastric pain. In the ED it was found that he had blood in his stool, suggesting a GI bleed. Yuri was transferred to the hospital on 02/08 and was placed in the ICU due to acuity of care. In the ICU, Yuri noted intense pain in the epigastric region that was a 8/10. The pain moved from his left arm to his stomach. Surgery was consulted to review any need for intervention. GI decided that a less aggressive approach would be best for Yuri and he was closely monitored. CT scan showed no acute bleeds, mild fluid free fluid in the abdomen, a small hiatal hernia, and BL pleural effusions. Given the chest pain mentioned, cardiology was consulted. After reviewing his PMH of cardiology interventions, Dr. Heard suggested further follow-up for stress testing on discharge, but no acute issues. To relieve the chest pain, a nitroglycerin patch was given and pain improved. His Hgb has remained stable, but at a lower level. There has been no change in Hgb or BP to suggest any acute blood loss. It is likely that there was mircoscopic blood loss causing positive heme in stool. On 02/10, Yuri showed improvement and was transferred to the 4th floor MED/SURG unit. Chepe diet was advanced to clear liquids without problem. Over his stay, surgery and cardiology have followed closely. On 02/10, Yuri also noted some GI discomfort with bloating, but this has resolved. His GI pain has also resolved. Yuri has not had a BM during his hospital stay, but is passing gas and has maintained NABS on physical exam. For discharge, Yuri will be returning home. There are no expected barriers to return to home. 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 Heard. As always, Yuri is instructed to return to the ED if acute return of symptoms. He has no other concerns. Labs (last 24 hrs) Laboratory Tests 02/08/23 23:01: White Blood Count 10.0, Red Blood Count 3.04L, Hemoglobin 9.2L, Hematocrit 28L, Mean Corpuscular Volume 93, Mean Corpuscular Hemoglobin 30, Mean Corpuscular Hemoglobin Concent 33, Red Cell Distribution Width 16.0H, Platelet Count 252, Mean Platelet Volume 11.1, Immature Granulocyte % (Auto) 0, Neutrophils (%) (Auto) 73, Lymphocytes (%) (Auto) 15, Monocytes (%) (Auto) 11, Eosinophils (%) (Auto) 1, Basophils (%) (Auto) 1, Neutrophils # (Auto) 7.2, Lymphocytes # (Auto) 1.5, Monocytes # (Auto) 1.1H, Eosinophils # (Auto) 0.1, Basophils # (Auto) 0.1, Immature Granulocyte # (Auto) 0.0, Sodium Level 137, Potassium Level 3.8, Chloride Level 102, Carbon Dioxide Level 24, Anion Gap 11, Blood Urea Nitrogen 29H, Creatinine 1.39H, Estimat Glomerular Filtration Rate 56, BUN/Creatinine Ratio 21, Glucose Level 200H, Calcium Level 8.8, Corrected Calcium 9.0, Iron Level 36L, Total Bilirubin 0.6, Aspartate Amino Transf (AST/SGOT) 18, Alanine Aminotransferase (ALT/SGPT) 16, Alkaline Phosphatase 94, Total Protein 7.0, Albumin 3.7, Vitamin B12 Level 593 02/09/23 04:04: White Blood Count 10.5, Red Blood Count 2.74L, Hemoglobin 8.3L, Hematocrit 25L, Mean Corpuscular Volume 92, Mean Corpuscular Hemoglobin 30, Mean Corpuscular Hemoglobin Concent 33, Red Cell Distribution Width 15.9H, Platelet Count 231, Mean Platelet Volume 11.0, Immature Granulocyte % (Auto) 0, Neutrophils (%) (Au to) 73, Lymphocytes (%) (Auto) 15, Monocytes (%) (Auto) 10, Eosinophils (%) (Auto) 1, Basophils (%) (Auto) 1, Neutrophils # (Auto) 7.7, Lymphocytes # (Auto) 1.5, Monocytes # (Auto) 1.1H, Eosinophils # (Auto) 0.1, Basophils # (Auto) 0.1, Immature Granulocyte # (Auto) 0.0, Sodium Level 137, Potassium Level 3.9, Chloride Level 103, Carbon Dioxide Level 24, Anion Gap 10, Blood Urea Nitrogen 27H, Creatinine 1.20, Estimat Glomerular Filtration Rate 66, BUN/Creatinine Rati o 23, Glucose Level 165H, Calcium Level 8.3L, Corrected Calcium 8.8, Total Bilirubin 0.6, Aspartate Amino Transf (AST/SGOT) 16, Alanine Aminotransferase (ALT/SGPT) 15, Alkaline Phosphatase 87, Total Protein 6.5, Albumin 3.4, Phosphorus Level 2.1L, Magnesium Level 1.7, Lactate Dehydrogenase 263H, Troponin I < 0.028 02/09/23 11:56: Glucometer 185H 02/09/23 18:16: Glucometer 156H 02/09/23 23:20: Glucometer 142H 02/10/23 04:06: White Blood Count 12.1H, Red Blood Count 2.85L, Hemoglobin 8.5L, Hematocrit 27L, Mean Corpuscular Volume 94, Mean Corpuscular Hemoglobin 30, Mean Corpuscular Hemoglobin Concent 32, Red Cell Distribution Width 16.6H, Platelet Count 233, Mean Platelet Volume 11.2, Immature Granulocyte % (Auto) 0, Neutrophils (%) (Auto) 83H, Lymphocytes (%) (Auto) 7L, Monocytes (%) (Auto) 9, Eosinophils (%) (Auto) 0, Basophils (%) (Auto) 1, Neutrophils # (Auto) 10.0H, Lymphocytes # (Auto) 0.9L, Monocytes # (Auto) 1.1H, Eosinophils # (Auto) 0.1, Basophils # (Auto) 0.1, Immature Granulocyte # (Auto) 0.1, Neutrophils % (Manual) 85, Lymphocytes % (Manual) 5, Monocytes % (Manual) 6, Basophils % (Manual) 1, Reactive Lymphocytes 3, Polychromasia SLIGHT, Elliptocytes SLIGHT, Sodium Level 134L, Potassium Level 4.4, Chloride Level 102, Carbon Dioxide Level 21, Anion Gap 11, Blood Urea Nitrogen 20H, Creatinine 1.10, Estimat Glomerular Filtration Rate 74, BUN/Creatinine Ratio 18, Glucose Level 174H, Calcium Level 8.2L, Corrected Calcium 8.5, Phosphorus Level 2.4, Magnesium Level 2.1, Total Bilirubin 1.1H, Aspartate Amino Transf (AST/SGOT) 17, Alanine Aminotransferase (ALT/SGPT) 15, Alkaline Phosphatase 89, Total Protein 6.8, Albumin 3.6 02/10/23 05:23: Glucometer 191H 02/10/23 08:08: Troponin I < 0.028 02/10/23 10:41: Glucometer 185H 02/10/23 15:37: Glucometer 160H 02/10/23 19:41: Glucometer 266H 02/10/23 20:41: Glucometer 256H 02/11/23 05:34: Glucometer 121H 02/11/23 05:35: White Blood Count 8.4, Red Blood Count 2.72L, Hemoglobin 8.3L, Hematocrit 26L, Mean Corpuscular Volume 94, Mean Corpuscular Hemoglobin 31, Mean Corpuscular He moglobin Concent 32, Red Cell Distribution Width 16.6H, Platelet Count 217, Mean Platelet Volume 10.9, Immature Granulocyte % (Auto) 0, Neutrophils (%) (Auto) 75, Lymphocytes (%) (Auto) 13, Monocytes (%) (Auto) 10, Eosinophils (%) (Auto) 2, Basophils (%) (Auto) 1, Neutrophils # (Auto) 6.3, Lymphocytes # (Auto) 1.1, Monocytes # (Auto) 0.8, Eosinophils # (Auto) 0.2, Basophils # (Auto) 0.1, Immature Granulocyte # (Auto) 0.0, Sodium Level 135, Potassium Level 3.6, Chloride Level 103, Carbon Dioxide Level 24, Anion Gap 8, Blood Urea Nitrogen 17, Creatinine 1.10, Estimat Glomerular Filtration Rate 74, BUN/Creatinine Ratio 15, Glucose Level 108H, Calcium Level 7.9L, Corrected Calcium 8.5, Magnesium Level 2.0, Total Bilirubin 0.9, Aspartate Amino Transf (AST/SGOT) 19, Alanine Aminotransferase (ALT/SGPT) 15, Alkaline Phosphatase 84, Total Protein 6.2L, Albumin 3.2 02/11/23 11:06: Glucometer 192H Microbiology 02/08/23 MRSA Screen - Final, Complete MRSA not isolated Pending Labs Microbiology Date/Time Source Procedure Growth Status 02/08/23 22:49 Nasal MRSA Screen - Final MRSA not isolated Complete Laboratory Tests 02/08/23 23:01: White Blood Count 10.0, Red Blood Count 3.04, Hemoglobin 9.2, Hematocrit 28, Mean Corpuscular Volume 93, Mean Corpuscular Hemoglobin 30, Mean Corpuscular Hemoglobin Concent 33, Red Cell Distribution Width 16.0, Platelet Count 252, Mean Platelet Volume 11.1, Immature Granulocyte % (Auto) 0, Neutrophils (%) (Auto) 73, Lymphocytes (%) (Auto) 15, Monocytes (%) (Auto) 11, Eosinophils (%) (Auto) 1, Basophils (%) (Auto) 1, Neutrophils # (Auto) 7.2, Lymphocytes # (Auto) 1.5, Monocytes # (Auto) 1.1, Eosinophils # (Auto) 0.1, Basophils # (Auto) 0.1, Immature Granulocyte # (Auto) 0.0, Sodium Level 137, Potassium Level 3.8, Chloride Level 102, Carbon Dioxide Level 24, Anion Gap 11, Blood Urea Nitrogen 29, Creatinine 1.39, Estimat Glomerular Filtration Rate 56, BUN/Creatinine Ratio 21, Glucose Level 200, Calcium Level 8.8, Corrected Calcium 9.0, Iron Level 36, Total Bilirubin 0.6, Aspartate Amino Transf (AST/SGOT) 18, Alanine Aminotransferase (ALT/SGPT) 16, Alkaline Phosphatase 94, Total Protein 7.0, Albumin 3.7, Vitamin B12 Level 593 02/09/23 04:04: White Blood Count 10.5, Red Blood Count 2.74, Hemoglobin 8.3, Hematocrit 25, Mean Corpuscular Volume 92, Mean Corpuscular Hemoglobin 30, Mean Corpuscular Hemoglobin Concent 33, Red Cell Distribution Width 15.9, Platelet Count 231, Mean Platelet Volume 11.0, Immature Granulocyte % (Auto) 0, Neutrophils (%) (Auto) 73, Lymphocytes (%) (Auto) 15, Monocytes (%) (Auto) 10, Eosinophils (%) (Auto) 1, Basophils (%) (Auto) 1, Neutrophils # (Auto) 7.7, Lymphocytes # (Auto) 1.5, Monocytes # (Auto) 1.1, Eosinophils # (Auto) 0.1, Basophils # (Auto) 0.1, Immature Granulocyte # (Auto) 0.0, Sodium Level 137, Potassium Level 3.9, Chloride Level 103, Carbon Dioxide Level 24, Anion Gap 10, Blood Urea Nitrogen 27, Creatinine 1.20, Estimat Glomerular Filtration Rate 66, BUN/Creatinine Ratio 23, Glucose Level 165, Calcium Level 8.3, Corrected Calcium 8.8, Total Bilirubin 0.6, Aspartate Amino Transf (AST/SGOT) 16, Alanine Aminotransferase (ALT/SGPT) 15, Alkaline Phosphatase 87, Total Protein 6.5, Albumin 3.4, Phosphorus Level 2.1, Magnesium Level 1.7, Lactate Dehydrogenase 263, Troponin I < 0.028 02/09/23 11:56: Glucometer 185 02/09/23 18:16: Glucometer 156 02/09/23 23:20: Glucometer 142 02/10/23 04:06: White Blood Count 12.1, Red Blood Count 2.85, Hemoglobin 8.5, Hematocrit 27, Mean Corpuscular Volume 94, Mean Corpuscular Hemoglobin 30, Mean Corpuscular Hemoglobin Concent 32, Red Cell Distribution Width 16.6, Platelet Count 233, Mean Platelet Volume 11.2, Immature Granulocyte % (Auto) 0, Neutrophils (%) (Auto) 83, Lymphocytes (%) (Auto) 7, Monocytes (%) (Auto) 9, Eosinophils (%) (A uto) 0, Basophils (%) (Auto) 1, Neutrophils # (Auto) 10.0, Lymphocytes # (Auto) 0.9, Monocytes # (Auto) 1.1, Eosinophils # (Auto) 0.1, Basophils # (Auto) 0.1, Immature Granulocyte # (Auto) 0.1, Neutrophils % (Manual) 85, Lymphocytes % (Manual) 5, Monocytes % (Manual) 6, Basophils % (Manual) 1, Reactive Lymphocytes 3, Polychromasia SLIGHT, Elliptocytes SLIGHT, Sodium Level 134, Potassium Level 4.4, Chloride Level 102, Carbon Dioxide Level 21, Anion Gap 11, Blood Urea Nitrogen 20, Creatinine 1.10, Estimat Glomerular Filtration Rate 74, BUN/Creatinine Ratio 18, Glucose Level 174, Calcium Level 8.2, Corrected Calcium 8.5, Phosphorus Level 2.4, Magnesium Level 2.1, Total Bilirubin 1.1, Aspartate Amino Transf (AST/SGOT) 17, Alanine Aminotransferase (ALT/SGPT) 15, Alkaline Phosphatase 89, Total Protein 6.8, Albumin 3.6 02/10/23 05:23: Glucometer 191 02/10/23 08:08: Troponin I < 0.028 02/10/23 10:41: Glucometer 185 02/10/23 15:37: Glucometer 160 02/10/23 19:41: Glucometer 266 02/10/23 20:41: Glucometer 256 02/11/23 05:34: Glucometer 121 02/11/23 05:35: White Blood Count 8.4, Red Blood Count 2.72, Hemoglobin 8.3, Hematocrit 26, Mean Corpuscular Volume 94, Mean Corpuscular Hemoglobin 31, Mean Corpuscular Hemoglobin Concent 32, Red Cell Distribution Width 16.6, Platelet Count 217, Mean Platelet Volume 10.9, Immature Granulocyte % (Auto) 0, Neutrophils (%) (Auto) 75, Lymphocytes (%) (Auto) 13, Monocytes (%) (Auto) 10, Eosinophils (%) (Auto) 2, Basophils (%) (Auto) 1, Neutrophils # (Auto) 6.3, Lymphocytes # (Auto) 1.1, Monocytes # (Auto) 0.8, Eosinophils # (Auto) 0.2, Basophils # (Auto) 0.1, Immature Granulocyte # (Auto) 0.0, Sodium Level 135, Potassium Level 3.6, Chloride Level 103, Carbon Dioxide Level 24, Anion Gap 8, Blood Urea Nitrogen 17, Creatinine 1.10, Estimat Glomerular Filtration Rate 74, BUN/Creatinine Ratio 15, Glucose Level 108, Calcium Level 7.9, Corrected Calcium 8.5, Magnesium Level 2.0, Total Bilirubin 0.9, Aspartate Amino Transf (AST/SGOT) 19, Alanine Aminotransferase (ALT/SGPT) 15, Alkaline Phosphatase 84, Total Protein 6.2, Albumin 3.2 02/11/23 11:06: Glucometer 192 Discharge Home Medications: Active Scripts Active Protonix (Pantoprazole Sodium) 40 Mg Tablet.dr 40 Mg PO BID Sucralfate 1 Gram Tablet 1 Gm PO ACHS Reported B Complex (Vitamin B Complex) 1 Each Tablet 1 Each PO DAILY Atorvastatin Calcium 80 Mg Tablet 80 Mg PO HS Metformin HCl 1,000 Mg Tablet 1,000 Mg PO BID Tramadol HCl 50 Mg Tablet 50 Mg PO Q6H PRN Lisinopril 5 Mg Tablet 5 Mg PO DAILY Duloxetine HCl 30 Mg Capsule.dr 30 Mg PO DAILY Ferrous Sulfate 325 Mg (65 Mg Iron) Tablet 325 Mg PO DAILY Metoprolol Succinate 25 Mg Tab.er.24h 25 Mg PO DAILY Mag-Oxide (Magnesium Oxide) 200 Mg Magnesium Tablet 400 Mg PO DAILY Nortriptyline HCl 50 Mg Capsule 50 Mg PO BID Instructions to patient/family Please see electronic discharge instructions given to patient. Clinical Quality Measures DVT/VTE Risk/Contraindication: Contraindications-Pharm: Other *list below* Other: ANEESH Funes DO Feb 11, 2023 11:37
[2023-02-11 14:14] VITALS: BP 122/77
== END 2023-02-11 14:16 | disposition home or self-care (01) | DRG 378 ==
LOC: ICU 22:40 → 4TH 02-10 14:45
PROVIDERS: ADMIT Internal Medicine; ATTEND Internal Medicine
DX: K92.2 Gastrointestinal hemorrhage, unspecified (principal); N17.9 Acute kidney failure, unspecified; J90 Pleural effusion, not elsewhere classified; I25.119 Atherosclerotic heart disease of native coronary artery with unspecified angina pectoris; D64.9 Anemia, unspecified; K59.00 Constipation, unspecified; R09.02 Hypoxemia; R10.13 Epigastric pain; E11.9 Type 2 diabetes mellitus without complications; I10 Essential (primary) hypertension; G47.33 Obstructive sleep apnea (adult) (pediatric); J44.9 Chronic obstructive pulmonary disease, unspecified; I48.91 Unspecified atrial fibrillation; E78.00 Pure hypercholesterolemia, unspecified; M81.0 Age-related osteoporosis without current pathological fracture; M54.9 Dorsalgia, unspecified; G89.29 Other chronic pain; H54.7 Unspecified visual loss; Z79.01 Long term (current) use of anticoagulants; Z95.1 Presence of aortocoronary bypass graft; Z95.5 Presence of coronary angioplasty implant and graft; Z95.0 Presence of cardiac pacemaker; Z87.891 Personal history of nicotine dependence; I25.2 Old myocardial infarction; Z79.82 Long term (current) use of aspirin; Z79.84 Long term (current) use of oral hypoglycemic drugs; Z79.899 Other long term (current) drug therapy
CPT/HCPCS: 36415; 74177; 80053; 82607; 82947; 83540; 83615; 83735; 84100; 84484; 85007; 85025; 85027; 86850; 86900; 86901; 86920; 87081; 93005; 94760